=== PATIENT | male | born 1955 ===

== ENCOUNTER 2019-01-11 09:53 | Inpatient (IN) ==
[2019-01-11] MEDS ORDERED: ACETAMINOPHEN 325 MG TAB PO STA (10:15)
--- NOTE | 2019-01-11 10:43 | XRay Report ---
XR chest 1V portable CLINICAL HISTORY: 63 years-old Male presenting with Sepsis. TECHNIQUE: Portable upright AP view of the chest was obtained. COMPARISON: None. FINDINGS: The patient is slightly GEORGIAN rotated. Cardiac silhouette top normal in size. No focal opacity. No larg e effusion or pneumothorax. Degenerative changes of the thoracic spine. Gas and and ingested material distend the stomach. IMPRESSION: 1. No acute cardiopulmonary disease. Electronically signed by: Viet Astorga M.D. 01/11/2019 10:41 AM
[2019-01-11 11:13] LABS: Basophils # (auto) 0.01 K/uL (0-0.2); Basophils % (auto) 0.2 %; Eosinophils % (auto) 3.9 %; Hematocrit (blood only) 33.9 % (42-52); Hemoglobin 11.5 g/dL (14.0-18.0); Lymphocytes # (auto) 0.35 K/uL (1.2-3.4); Lymphocytes % (auto) 6.8 %; Mean Corpuscular Hgb Conc 33.9 g/dL (32-36); Mean Corpuscular Volume 97.1 fL (80-100); Mean Platelet Volume 10.3 fL (7.4-10.4); Monocytes # (auto) 0.43 K/uL (0.11-0.59); Monocytes % (auto) 8.4 %; Neutrophils # (auto) 4.14 K/uL (1.4-6.5); Neutrophils % (auto) 80.7 %; Platelet Count 250 K/uL (130-400); RDW Coefficient of Variation 13.7 % (11.5-14.5); RDW Standard Deviation 48.7 fL (36.4-46.3); Red Blood Count 3.49 M/uL (4.7-6.1); White Blood Count 5.13 K/uL (4.8-10.8)
[2019-01-11 11:28] LABS: INR 1.1 (0.9-1.1); Partial Thromboplastin Ratio 0.9; Partial Thromboplastin Time 23.6 Seconds (21.0-31.0)
[2019-01-11 11:30] LABS: Albumin Level 3.4 gm/dl (3.4-5.0); BUN Creatinine Ratio 37.7 (10-20); Calcium 9.1 mg/dl (8.5-10.1); Est GFR (African American) 87.1; Est GFR (Non-African American) 75.2; Potassium 3.6 mmol/L (3.5-5.1)
[2019-01-11 11:36] LABS: Albumin Globulin Ratio 0.8 (0.9-2); Bilirubin,Total 0.7 mg/dl (0.2-1); Globulin 4.2 gm/dl (2.5-4.0); Total Protein 7.6 gm/dl (6.4-8.2)
[2019-01-11 11:44] LABS: Influenza A virus by PCR Neg for Influ A (Neg); Influenza B virus by PCR Neg for Influ B (Neg)
--- NOTE | 2019-01-11 11:52 | CT Scan Report ---
HEAD CT NONCONTRAST CT DOSE: 638.56 mGycm HISTORY: weakness TECHNIQUE: Multiaxial CT images of the head were performed without the use of intravenous contrast. A utomated exposure control was utilized for this study. A dose lowering technique was utilized adheri ng to the principles of ALARA. Comparison: None. Findings: The paranasal sinuses and mastoid air cells are clear. The calvarium and skull base are int act. The ventricles and sulci are within normal limits. There is no mass, hematoma, midline shift, or acute infarct. There is a 2.4 x 2.3 cm lobular soft tissue mass within the right orbit within the re trobulbar location. This may be post injury and extraconal. This does raise a few calcifications. Thi s is consistent with a hemangioma. Mild paravertebral matter hypodensity is nonspecific but suggestiv e of microvascular ischemic change. Old lacunar infarct within the right thalamus. Impression: 1. No acute intracranial abnormality. 2. 2.4 x 2.3 cm lobular soft tissue mass within the right orbit as described above. This favors a hem angioma. Nonemergent ophthalmology consultation is recommended for further evaluation. 3. There is an old lacunar infarct within the right thalamus. 4. Presumed mild microvascular ischemic changes. Electronically signed by: Justo Hernandez M.D. 01/11/2019 11:51 AM
[2019-01-11] MEDS ORDERED: SODIUM CHLORIDE 0.9% 1000ML 1,000 ML IV ONE ×2 (12:54→14:48)
--- NOTE | 2019-01-11 14:39 | Magnetic Resonance Report ---
MRI OF THE THORACIC SPINE WITHOUT CONTRAST CLINICAL HISTORY: incontinence, numbness, weak r/o abscess/cauda COMPARISON: None. TECHNIQUE: Utilizing a 1.5 Mirta magnet and dedicated coil, multiplanar, multiecho imaging of the th oracic spine was performed without IV contrast. The patient was unable to complete the exam. FINDINGS: This exam is compromised by motion artifact. In addition, the axial pulsing sequences were not completed. However, alignment of the cervical spine is anatomic. Vertebral body heights are maint ained. Several T2 hyperintense foci within the thoracic spine are indeterminate but favor hemangiomas . There is no thoracic spine fracture. There is no intracanalicular mass or fluid collection. Thoraci c cord signal and caliber are normal. Paravertebral soft tissues are unremarkable. No disc herniation within the thoracic spine is noted. Of note, emergency room tech images demonstrate severe central canal stenosis at C3-C4 which is suboptimally assessed on this exam. However, there is cord compression with cord ed irma at the C3-C4 level. There is a disc bulge with suspected superimposed disc protrusion at C3-C4. T here is prominence of the posterior talus. There is loss of height of the superior plate of C4. There is slight retrolisthesis of C4 on C5. IMPRESSION: 1. Severe central canal stenosis with cord compression at C3-C4 and the C4 level which is only shown on the emergency room tech sequence but reveals disc bulge with associated disc protrusion, prominence of the poste rior elements with associated cord compression. Moderate loss of height of the superior endplate of C 4 is age-indeterminate but probably old. Slight retrolisthesis of C4 on C5. Spine surgical consultati on is recommended. 2. No significant abnormality within the thoracic spine although exam compromised by motion artifact. Electronically signed by: Leonardo Curran M.D. 01/11/2019 2:37 PM
[2019-01-11] MEDS ORDERED: cefTRIAXone SODIUM 2,000 MG in DEXTROSE 5% 50 ML IV STA (14:48)
[2019-01-11] MEDS ORDERED: VANCOMYCIN HCL 1,250 MG in SODIUM CHLORIDE 0.9% 500 ML IV ONE (14:48)
[2019-01-11] MEDS ORDERED: VANCOMYCIN CONSULT ACTIVE PRN (14:48)
[2019-01-11] MEDS ORDERED: methylPREDNISolone 125 MG in SYRINGE 0 ML IV STA (14:48)
[2019-01-11 14:57] LABS: Appearance Urine Turbid (Clear); Bacteria Urine Automated 1+ (Negative); Bilirubin Urine Negative (Negative); Blood Urine Negative (Negative); Color Urine Yellow; Glucose Urine UA Negative (Negative); Ketones Urine Negative (Negative); Leukocyte Esterase Urine 1+ (Negative); Nitrite Urine Positive (Negative); RBC Urine Automated 0-4 /hpf (0-4); Specific Gravity Urine 1.026 (1.000-1.030); Urobilinogen Urine Negative (Negative); pH Urine 7.5 (4.5-7.5)
[2019-01-11 15:19] LABS: Protein Urine Trace (Negative)
--- NOTE | 2019-01-11 15:30 | History & Physical Report ---
Date of Service January 11, 2019 Assessment & Plan (1) Cervical spinal cord compression: I suspect that the patient has had long-standing cervical spine issues but certainly his cord compression has been acute over the last 1-2 weeks. The presence of muscle atrophy of both hands would argue that he has had ongoing cervical spine issues probably for months if not longer. He has evidence of myelopathy on physical exam. He also has had bowel and bladder incontinence in the previous [address] Damon Díaz has been consulted from the spine team and plans to take the patient emergently to the operating room tonight for cervical spine cord decompression. The patient received a large dose of Solu- Medrol in the emergency department and I will continue Decadron 6 mg IV every 6 hours starting later tonight. Will allow morphine for pain control. He will be kept n.p.o. for his procedure tonight. Present on Admission?: Yes (2) Urinary retention: This is neurogenic in origin due to his cervical spine cord compression. Will leave Hoffmann catheter in place. Could consider a spontaneous voiding trial late in his hospitalization here if he makes a good recovery from the operation and if he is showing signs of neurological recovery. (3) UTI (urinary tract infection): Urine culture from January 10 is growing a staph species. Believe the UTI is the likely cause of his low-grade fever and lack of appetite. I do not think that the fever is due to the spinal cord process. The emergency room started Rocephin and vancomycin and I am going to continue both of these for now. Follow the blood cultures as well as the most recent urine culture. (4) Knee pain, bilateral: We will obtain x-rays of both knees to exclude any fracture. Also check for CPPD changes. The steroids for his cervical spine process will likely help the knees. (5) Thought disorder: The patient was unable to tell me what psychiatric diagnosis he has. I have to assume that he has some form of schizophrenia or schizoaffective disorder. Continue his Zyprexa. Fortunately he is not displaying any psychotic symptoms at this time. (6) DVT prophylaxis: SCDs. Chemical means contraindicated due to impending cervical spine surgery. Following his surgery he will need intensive rehabilitation and PT OT consults. Plan of care was discussed with Dr. Damon Díaz. Total time spent on admission activity 60 minutes History of Present Illness Chief Complaint: numbness, weakness Primary Care Provider: [facility] 63yo AA male presents with 2 weeks of right hand numbness and right leg numbness. This has been associated with weakness. He denies any numbness or weakness in the left arm or leg. He mentions several times he "stopped drinking water" but can't tell me why he did such. Due to the numbness and weakness he has had difficulty ambulating for about those 2 weeks. In fact he has spent most of the time in the bed. He has had bladder incontinence for about 24 hours. He denies issues with voiding prior. He had an episode of fecal incontinence just prior to arrival. He has lost weight recently -- maybe 10-15 pounds. This is despite eating. Allergies Allergy/AdvReac Type Severity Reaction Status Date / Time No Known Allergies Allergy Unverified 01/11/19 12:07 Home Medications Home Medications Medication Instructions Recorded Confirmed Type acetaminophen [Tylenol] 650 mg PO UD 01/11/19 01/11/19 History olanzapine [Zyprexa] 10 mg PO HS 01/11/19 01/11/19 History Past Med/Surg History Medical History Cervical spinal cord compression Cervical spine compression C3-4 cervical spine profound neuro deficits Hypertension Schizophrenia Surgical History History of eye surgery Family History Father , history is not known No problems noted. Mother , unknown health history No problems noted. 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 Other Information That Helps Us Care for You: No Safety Concerns: Feels Safe At This Time Smoking Status: Former smoker Hx Alcohol Use: No Hx Substance Use: No Review of Systems Constitutional: + fever, + anorexia and + weight loss; no chills Eyes: no worsening vision Ear, Nose, Mouth, Throat: no dysphagia Respiratory: no cough and no dyspnea Cardiovascular: no chest pain Gastrointestinal: + fecal incontinence; no abdominal pain, no nausea, no vomit ing and no blood in stools Genitourinary (Male): + difficulty urinating, + urinary hesitancy and + urinary incontinence Musculoskeletal: no neck pain and no joint pain Integumentary: no rash Neurologic: + localized weakness and + numbness Psychiatric: no hallucinations, no auditory hallucinations and no visual hallucinations no diabetes Physical Exam Vital Signs (Past 24 Hours): Last Vital Signs Temp 37.6 C H 01/11/19 12:34 Pulse 70 01/11/19 14:30 Resp 16 01/11/19 14:30 BP 126/74 01/11/19 14:30 Pulse Ox 95 01/11/19 14:30 Constitutional: + ill appearing and + thin; no acute distress Eyes: PERRL ENMT: external ear and nose normal, oropharynx normal Neck: trachea midline, no thyromegaly Respiratory: normal respiratory effort, lungs clear to auscultation Cardiovascular: Rate/Rhythm: regular rate and regular rhythm Heart Sounds: normal S1 and normal S2; no murmur Vessels: posterior tibial pulses present and dorsalis pedis pulses present; no JVD Extremities: no edema Gastrointestinal (Abdomen): normal bowel sounds, soft, nontender, no hepatosplenomegaly Inspection/Auscultation: + abdomen distended (mild) Musculoskeletal: Extremities: + muscle atrophy (intrinsic hand muscles b/l, worse on right; leg muscles as well) Bilateral knees with significant osteoarthritic bony changes as well as probable joint effusions. Left knee had signs of recent trauma to the medial aspect. She reported he had been crawling on his knees recently because of the weakness in his legs. Skin: no rashes, warm and dry Neurologic: Reflexes in the upper and lower extremities are brisk. May be a couple beats of ankle clonus bilaterally. 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 Left hand wharf labourer at best 3 out of 5. Right lower extremity with at most 1 out of 5 strength. Left lower extremity strength at best 2 out of 5. Right and left arm flexion about 3 out of 5 as he can raise his arms against gravity. Interestingly he stated that light sensation was the same in both the right and left legs as well as the right and left arms. I did not test his gai t. Psychiatric: Orientation: alert Affect: + flat affect He was not responding to internal stimuli and there is no evidence of auditory or visual hallucinations Genitourinary: Hoffmann catheter was in place Lymphatic: no cervical lymphadenopathy Results & Data Laboratory Results Laboratory Results - last 24 hr 01/11/19 01/11/19 01/11/19 10:40 10:59 10:59 WBC 5.13 RBC 3.49 L Hgb 11.5 L Hct 33.9 L MCV 97.1 MCH 33.0 MCHC 33.9 RDW Std Deviation 48.7 H RDW Coeff of Gael 13.7 Plt Count 250 MPV 10.3 Immature Gran % (Auto) 0.0 Neut % (Auto) 80.7 Lymph % (Auto) 6.8 [place] % (Auto) 8.4 Eos % (Auto) 3.9 Baso % (Auto) 0.2 Immature Gran # (Auto) 0.00 Neut # (Auto) 4.14 Lymph # (Auto) 0.35 L [place] # (Auto) 0.43 Eos # (Auto) 0.20 Baso # (Auto) 0.01 PT 11.0 INR 1.1 APTT 23.6 PTT Ratio 0.9 Sodium Potassium Chloride Carbon Dioxide Anion Gap BUN Creatinine Est Cr Clr Drug Dosing Est GFR ( Amer) Est GFR (Non-Af Amer) BUN/Creatinine Ratio Glucose Lactate Calcium Total Bilirubin AST ALT Alkaline Phosphatase Total Protein Albumin Globulin Albumin/Globulin Ratio Procalcitonin Urine Color Urine Appearance Urine pH Ur Specific [place] Urine Protein Urine Glucose (UA) Urine Ketones Urine Blood Urine Nitrite Urine Bilirubin Urine Urobilinogen Ur Leukocyte Esterase Urine WBC (Auto) Urine RBC (Auto) U Hyaline Cast (Auto) U Epithel Cells (Auto) Urine Bacteria (Auto) Influenza Type A (PCR) Neg for Influ A Influenza Type B (PCR) Neg for Influ B 01/11/19 01/11/19 01/11/19 10:59 10:59 11:07 WBC RBC Hgb Hct MCV MCH MCHC RDW Std Deviation RDW Coeff of Gael Plt Count MPV Immature Gran % (Auto) Neut % (Auto) Lymph % (Auto) [place] % (Auto) Eos % (Auto) Baso % (Auto) Immature Gran # (Auto) Neut # (Auto) Lymph # (Auto) [place] # (Auto) Eos # (Auto) Baso # (Auto) PT INR APTT PTT Ratio Sodium 144 Potassium 3.6 Chloride 109 H Carbon Dioxide 29 Anion Gap 6.0 BUN 40 H Creatinine 1.05 Est Cr Clr Drug Dosing 67.0 Est GFR ( Amer) 87.1 Est GFR (Non-Af Amer) 75.2 BUN/Creatinine Ratio 37.7 H Glucose 101 H Lactate 1.4 Calcium 9.1 Total Bilirubin 0.7 AST 19 ALT 28 Alkaline Phosphatase 106 Total Protein 7.6 Albumin 3.4 Globulin 4.2 H Albumin/Globulin Ratio 0.8 L Procalcitonin < 0.05 Urine Color Urine Appearance Urine pH Ur Specific [place] Urine Protein Urine Glucose (UA) Urine Ketones Urine Blood Urine Nitrite Urine Bilirubin Urine Urobilinogen Ur Leukocyte Esterase Urine WBC (Auto) Urine RBC (Auto) U Hyaline Cast (Auto) U Epithel Cells (Auto) Urine Bacteria (Auto) Influenza Type A (PCR) Influenza Type B (PCR) 01/11/19 14:20 WBC RBC Hgb Hct MCV MCH MCHC RDW Std Deviation RDW Coeff of Gael Plt Count MPV Immature Gran % (Auto) Neut % (Auto) Lymph % (Auto) [place] % (Auto) Eos % (Auto) Baso % (Auto) Immature Gran # (Auto) Neut # (Auto) Lymph # (Auto) [place] # (Auto) Eos # (Auto) Baso # (Auto) PT INR APTT PTT Ratio Sodium Potassium Chloride Carbon Dioxide Anion Gap BUN Creatinine Est Cr Clr Drug Dosing Est GFR ( Amer) Est GFR (Non-Af Amer) BUN/Creatinine Ratio Glucose Lactate Calcium Total Bilirubin AST ALT Alkaline Phosphatase Total Protein Albumin Globulin Albumin/Globulin Ratio Procalcitonin Urine Color Yellow Urine Appearance Turbid H Urine pH 7.5 Ur Specific [place] 1.026 Urine Protein Trace H Urine Glucose (UA) Negative Urine Ketones Negative Urine Blood Negative Urine Nitrite Positive H Urine Bilirubin Negative Urine Urobilinogen Negative Ur Leukocyte Esterase 1+ H Urine WBC (Auto) 10-30 H Urine RBC (Auto) 0-4 U Hyaline Cast (Auto) 1-5 U Epithel Cells (Auto) 5-10 H Urine Bacteria (Auto) 1+ H Influenza Type A (PCR) Influenza Type B (PCR) Diagnostic Findings MRI cervical spine- IMPRESSION: 1. Moderately advanced multilevel spondylitic changes 2. The study is most significant for severe spinal stenosis at the C3-4 level. This results in spinal cord flattening. In addition there is abnormal T2 signal within the cervical cord the C3 level extending over a length of 14 mm. This likely represents a secondary myelopathy. EKG - My reading: Normal sinus rhythm with PVCs, LVH by voltage criteria, V5 V6 with ST depression CXR - no acute process Code Status & VTE Plan Code Status LEVEL 5 DNR PER HIS REQUEST VTE Prophylaxis Plan VTE Prophylaxis will be ordered: Yes (1) UTI (urinary tract infection) Urinary tract infection type: acute cystitis Hematuria presence: without h ematuria Qualified Code(s): N30.00 - Acute cystitis without hematuria (2) Knee pain, bilateral Chronicity: acute Qualified Code(s): M25.561 - Pain in right knee; M25.562 - Pain in left knee
--- NOTE | 2019-01-11 16:47 | History & Physical Report ---
Date of Service January 11, 2019 Assessment & Plan (1) Cervical cord compression with myelopathy: Patient will be restudied with a new cervical MRI scan. He will be taken to the operating room with decompression of the spinal cord. His procedure will be an anterior cervical discectomy and fusion of cervical spine at C3-4 cervical spine we will also take iliac crest bone graft Present on Admission?: Yes History of Present Illness Primary Care Provider: ADRIANE Ortega Allergies Allergy/AdvReac Type Severity Reaction Status Date / Time No Known Allergies Allergy Unverified 01/11/19 12:07 Home Medications Home Medications Medication Instructions Recorded Confirmed Type acetaminophen [Tylenol] 650 mg PO UD 01/11/19 01/11/19 History olanzapine [Zyprexa] 10 mg PO HS 01/11/19 01/11/19 History Past Med/Surg History Social History Preferred Language: Divehi marital status: Single marital status details: no children Current Living Situation Comment: Retirement 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 Feels Safe at Home: Yes Smoking Status: Former smoker Hx Alcohol Use: No Hx Substance Use: No Physical Exam Vital Signs (Past 24 Hours): Last Vital Signs Temp 37.6 C H 01/11/19 12:34 Pulse 70 01/11/19 14:30 Resp 16 01/11/19 14:30 BP 126/74 01/11/19 14:30 Pulse Ox 95 01/11/19 14:30 Eyes: PERRL, conjunctivae normal, anicteric sclerae normal visual torres by confrontation Respiratory: normal respiratory effort, lungs clear to auscultation Cardiovascular: RRR, no murmur, no edema Rate/Rhythm: regular rate and regular rhythm Gastrointestinal (Abdomen): Rectal Exam: + abnormal sphincter tone Incontinence of bowel function Musculoskeletal: Head/Neck/Chest: head atraumatic Spine: + limited cervical ROM, + loss of normal cervical lordosis and + cervical spinal tenderness Extremities: + limited ROM of extremities, + abnormal muscle tone, + muscle atrophy, + clubbing, + upper extremity abnormal to inspection and + hand abnormality Knee: + knee abnormal to inspection Skin: no rashes, warm and dry normal turgor Psychiatric: Orientation: oriented x 3, oriented to time and cooperative Apperance: + disheveled Eye Contact: + fair eye contact Speech: normal rate/rhythm/volume of speech Affect: + depressed affect and + anxious affect Mood: + depressed mood Cognition: remote memory grossly intact Estimated Intelligence: average estimated intelligence Patient had good ocular control decreased range of motion of cervical spine. 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
--- NOTE | 2019-01-11 16:51 | Magnetic Resonance Report ---
MR cervical spine wo con CLINICAL HISTORY: Neck pain and limb numbness. Bowel incontinence. TECHNIQUE: Sagittal and axial T1, T2 and STIR images were obtained. COMPARISON STUDY: No previous studies for comparison. There is marrow edema at the C3 and C4 level, likely on a discogenic basis. C2-3: There is no evidence of disc bulge or focal herniation. There is no spinal or foraminal stenosi s. C3-4: There is disc narrowing. There is minimal retrolisthesis of C3 on C4. There is severe spinal st enosis. There is increased T2 signal within the cervical cord at the C2 level extending over cranioca udad length of 14 mm. This is consistent with a secondary myelopathy. There is bilateral foraminal na rrowing left more severe than right C4-5: There is mild retrolisthesis of C3-4 on C5. There is minimal spinal canal narrowing. There is b ilateral foraminal stenosis. C5-6 :There is a minor circumferential disc bulge. There is no significant spinal stenosis. There is bilateral foraminal narrowing left more severe than right C6-7: There is a minimal circumferential disc bulge. There is no spinal stenosis. There is bilateral foraminal narrowing. C7-T1: There is no evidence of disc bulge or focal herniation. There is no evidence of spinal or fora shelley stenosis. IMPRESSION: 1. Moderately advanced multilevel spondylitic changes 2. The study is most significant for severe spinal stenosis at the C3-4 level. This results in spinal cord flattening. In addition there is abnormal T2 signal within the cervical cord the C3 level exten ding over a length of 14 mm. This likely represents a secondary myelopathy. Electronically signed by: Amado Ellison M.D. 01/11/2019 4:49 PM
[2019-01-11] MEDS: SODIUM CHLORIDE 0.9% 1000ML 1,000 ML IV SCH ×2 (16:53→23:55)
--- NOTE | 2019-01-11 17:14 | XRay Report ---
XR knee RT 2V routine CLINICAL HISTORY: Pain status post trauma COMPARISON: None. DISCUSSION: There are advanced osteoarthritic changes. There are calcified loose bodies present. Ther e is a small joint effusion. There are no acute fractures. IMPRESSION: 1. Advanced degenerative changes with calcified loose bodies a small joint effusion. No acute fractur es are visualized. Electronically signed by: Amado Ellison M.D. 01/11/2019 5:13 PM
--- NOTE | 2019-01-11 17:15 | XRay Report ---
XR knee LT 2V routine CLINICAL HISTORY: Pain status post trauma COMPARISON: None. DISCUSSION: There are advanced degenerative changes present. There is a trace joint effusion. There a re no acute fractures. IMPRESSION: Advanced degenerative change. Trace joint effusion. No acute fractures. Electronically signed by: Amado Ellison M.D. 01/11/2019 5:13 PM
--- NOTE | 2019-01-11 17:17 | Emergency Department Note ---
Entered by Charis Salazar acting as a scribe for History of Present Illness General Chief complaint: Illness Time Seen by Provider: 01/11/19 09:59 Source: patient and old records reviewed History of Present Illness Onset (ago): week(s) 2 Location: lower extremity (right) Pain Consistency: + other (persistent) Quality: + other (numbness) Associated symptoms: + weakness and + other (right hand numbness, urinary incontinence, stool retention); no fever/chills The patient is a 63 year old male with a past medical history of mental health disease who presents to the Emergency Room with complaints of persistent right leg numbness starting 2 weeks ago. The patient states that 2 weeks ago he all of a sudden had right leg numbness and right hand numbness. He states that he has been unable to move either very well, but especially his leg. Negative recent falls, hitting his head, history of a stroke, use of blood t hinners, fever, and chills. Per the records from [facility], the patient is in their mental health unit and was sent over for a rule out of cauda equina. They report that he has had lower extremity weakness and numbness, urinary incontinence, and stool retention. 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 and A total of 10 systems reviewed and were otherwise negative Physical Exam Vital Signs Vital Signs - 24 hr 01/11/19 09:55 01/11/19 10:39 01/11/19 10:44 Temperature 37.9 C H Temperature Source Oral Sepsis Recent Fever Within 48 Hours No Sepsis New/Unexplained Change in Mental Status No Sepsis Action Taken by Nursing No Action Required Pulse Rate 78 85 Pulse Rate [Right Finger] Pulse Rate from SpO2 Sensor 75 Pulse Rhythm [Right Finger] Pulse Strength [Right Finger] Respiratory Rate 16 22 Respiratory Effort / Characteristics Non-Labored Respiratory Depth Normal Respiratory Pattern Blood Pressure 128/84 120/74 Blood Pressure [Right Arm] Blood Pressure Mean 98 89 Blood Pressure Mean [Right Arm] Blood Pressure Position [Right Arm] Pulse Oximetry 97 98 95 Oxygen Delivery Method Room Air Room Air 01/11/19 11:30 01/11/19 11:42 01/11/19 12:00 Temperature Temperature Source Sepsis Recent Fever Within 48 Hours Sepsis New/Unexplained Change in Mental Status Sepsis Action Taken by Nursing Pulse Rate 78 77 71 Pulse Rate [Right Finger] 80 Pulse Rate from SpO2 Sensor 73 66 Pulse Rhythm [Right Finger] Regular Pulse Strength [Right Finger] Normal Respiratory Rate 18 19 19 Respiratory Effort / Characteristics Non-Labored Spontaneous Respiratory Depth Normal Respiratory Pattern Regular Blood Pressure 121/89 116/79 110/74 Blood Pressure [Right Arm] 116/79 Blood Pressure Mean 99 91 86 Blood Pressure Mean [Right Arm] 91 Blood Pressure Position [Right Arm] Lying Pulse Oximetry 95 100 99 Oxygen Delivery Method Room Air Room Air 01/11/19 12:31 01/11/19 12:34 01/11/19 13:58 Temperature 37.6 C H Temperature Source Oral Sepsis Recent Fever Within 48 Hours Sepsis New/Unexplained Change in Mental Status Sepsis Action Taken by Nursing Pulse Rate 76 68 Pulse Rate [Right Finger] Pulse Rate from SpO2 Sensor 60 Pulse Rhythm [Right Finger] Pulse Strength [Right Finger] Respiratory Rate 22 18 Respiratory Effort / Characteristics Respiratory Depth Respiratory Pattern Blood Pressure 99/62 L 116/70 Blood Pressure [Right Arm] Blood Pressure Mean 74 85 Blood Pressure Mean [Right Arm] Blood Pressure Position [Right Arm] Pulse Oximetry 99 Oxygen Delivery Method 01/11/19 14:01 01/11/19 14:30 01/11/19 16:43 Temperature Temperature Source Sepsis Recent Fever Within 48 Hours Sepsis New/Unexplained Change in Mental Status Sepsis Action Taken by Nursing Pulse Rate 72 70 Pulse Rate [Right Finger] 68 Pulse Rate from SpO2 Sensor Pulse Rhythm [Right Finger] Pulse Strength [Right Finger] Respiratory Rate 22 16 18 Respiratory Effort / Characteristics Respiratory Depth Respiratory Pattern Blood Pressure 109/73 126/74 Blood Pressure [Right Arm] 122/64 Blood Pressure Mean 85 91 Blood Pressure Mean [Right Arm] 83 Blood Pressure Position [Right Arm] Pulse Oximetry 95 98 Oxygen Delivery Method Room Air GENERAL: Smells of urine, nontoxic, thin in body habitus. EYE EXAM: Normal conjunctiva. PERRL, no anisocoria and EOM's grossly intact w/o pain. OROPHARYNX: Moist MM. NECK: Supple, no nuchal rigidity, no adenopathy, non-tender. No signs of meningismus. LUNGS: Clear to auscultation. Normal chest wall mechanics. HEART: NSR, no MRG. ABDOMEN: Abdomen soft, non-tender, normo-active bowel sounds, no masses, no rebound or guarding. BACK: No CVA TTP. SKIN: No rashes and no bruising. UPPER EXTREMITIES: Upper extremities are grossly normal. LOWER EXTREMITIES: No pitting edema. No calf pain. NEURO EXAM: Alert and oriented. Follow commands without issue. No sensory deficit identified bilateral upper and lower extremities. SILT to MUR nerves bilateral upper extremities. SPDP to tibialis nerves to bilateral lower extremities. No saddle anesthesia. 2/5 LLE, 1/5 RLE strength; decreased strength at b/l wrists/elbows w/ 3/5 strength w/ flex/ext and good shoulder shrug/ab/adduction of shoulders Course 1007: Past medical records reviewed. The patient was evaluated in room C8, and a complete history and physical examination were performed. 1255: I went to reevaluate the patient and he is still in MRI. 1355: I discussed the patient's case with the [facility] Sylvester MAYA. I updated him on the patient thus far. 1431: I discussed the patient's case with Dr. Jay Dickinson on the results of his MRI. 1444: I discussed the patient's case with Dr. Díaz- [facility]. He will take the patient to the OR [facility]. 1501: I reviewed the patient's case with Dr. Christiansen [facility] Hospitalist. He will evaluate the patient for further management. 1510: I reevaluated the patient and updated him on his test results. I discussed the treatment plan with him. He verbally agrees and understands. 1530: I updated the [facility] Physician at this time. Consultations Consultation #1: I discussed the patient's case with the [facility] Sylvester MAYA. I updated him on the patient thus far. Time: 13:55 Consultation #2: I discussed the patient's case with Dr. Magdy- Radiology on the results of his MRI. Time: 14:31 Consultation #3: I discussed the patient's case with Dr. Díaz- [facility]. He will take the patient to the OR [facility]. Time: 14:44 Additional Consultation(s): 1501: I reviewed the patient's case with Dr. Rosas- [facility] Hospitalist. He will evaluate the patient for further management. 1530: I updated the [facility] Physician at this time. Administered Medications Vancomycin HCl 1,250 mg/ (Sodium Chloride) 525 mls @ 200 mls/hr IV NOW ONE Stop: 01/11/19 17:25 Last Admin: 01/11/19 16:45 Dose: 200 mls/hr Documented by: [id number] Sodium Chloride (Nss 1000ml) 1,000 mls @ 125 mls/hr IV .Q8H CHALINO Stop: 02/10/19 15:14 Last Admin: 01/11/19 16:53 Dose: 125 mls/hr Documented by: [id number] Discontinued Medications Acetaminophen (Tylenol) 650 mg PO NOW STA Stop: 01/11/19 10:16 Last Admin: 01/11/19 10:48 Dose: 650 mg Documented by: [id number] Sodium Chloride (Nss 1000ml) 1,000 mls @ 999 mls/hr IV .Q1H1M ONE Stop: 01/11/19 13:54 Last Admin: 01/11/19 14:08 Dose: 999 mls/hr Documented by: [id number] Ceftriaxone Sodium 2,000 mg/ (Dextrose) 70 mls @ 100 mls/hr IV NOW STA Stop: 01/11/19 15:29 Last Admin: 01/11/19 15:35 Dose: 100 mls/hr Documented by: [id number] Methylprednisolone 125 mg/ (Syringe) 2 mls @ 1.5 mls/min IV NOW STA Stop: 01/11/19 14:49 Last Admin: 01/11/19 15:34 Dose: 1.5 mls/min Documented by: [id number] Sodium Chloride (Nss 1000ml) 1,000 mls @ 999 mls/hr IV .Q1H1M ONE Stop: 01/11/19 15:48 Last Admin: 01/11/19 15:35 Dose: 999 mls/hr Documented by: [id number] Medical Decision Making Medical Records Attestation: I reviewed the patient's medical records. Home Medications Current Medication List: was personally reviewed by me Laboratory Data Attestation: I reviewed the patient's lab results. Result diagrams: 01/11/19 10:59 01/11/19 10:59 Lab Results 01/11/19 01/11/19 01/11/19 Range/Units 10:40 10:59 10:59 WBC 5.13 (4.8-10.8) K/uL RBC 3.49 L (4.7-6.1) M/uL Hgb 11.5 L (14.0-18.0) g/dL Hct 33.9 L (42-52) % MCV 97.1 (80-100) fL MCH 33.0 (25-34) pg MCHC 33.9 (32-36) g/dL RDW Std Deviation 48.7 H (36.4-46.3) fL RDW Coeff of Gael 13.7 (11.5-14.5) % Plt Count 250 (130-400) K/uL MPV 10.3 (7.4-10.4) fL Immature Gran % (Auto) 0.0 % Neut % (Auto) 80.7 % Lymph % (Auto) 6.8 % [place] % (Auto) 8.4 % Eos % (Auto) 3.9 % Baso % (Auto) 0.2 % Immature Gran # (Auto) 0.00 (0.00-0.02) K/uL Neut # (Auto) 4.14 (1.4-6.5) K/uL Lymph # (Auto) 0.35 L (1.2-3.4) K/uL [place] # (Auto) 0.43 (0.11-0.59) K/uL Eos # (Auto) 0.20 (0-0.5) K/uL Baso # (Auto) 0.01 (0-0.2) K/uL PT 11.0 (9.0-12.0) Seconds INR 1.1 (0.9-1.1) APTT 23.6 (21.0-31.0) Seconds PTT Ratio 0.9 Sodium (136-145) mmol/L Potassium (3.5-5.1) mmol/L Chloride (98-107) mmol/L Carbon Dioxide (21-32) mmol/L Anion Gap (3-11) BUN (7-18) mg/dl Creatinine (0.6-1.4) mg/dl Est Cr Clr Drug Dosing ml/min Est GFR ( Amer) Est GFR (Non-Af Amer) BUN/Creatinine Ratio (10-20) Glucose (70-99) mg/dl Lactate (0.4-2.0) mmol/L Calcium (8.5-10.1) mg/dl Total Bilirubin (0.2-1) mg/dl AST (15-37) U/L ALT (12-78) U/L Alkaline Phosphatase (45-117) U/L Total Protein (6.4-8.2) gm/dl Albumin (3.4-5.0) gm/dl Globulin (2.5-4.0) gm/dl Albumin/Globulin Ratio (0.9-2) Procalcitonin (0-0.5) ng/ml Urine Color Urine Appearance (Clear) Urine pH (4.5-7.5) Ur Specific Warren (1.000-1.030) Urine Protein (Negative) Urine Glucose (UA) (Negative) Urine Ketones (Negative) Urine Blood (Negative) Urine Nitrite (Negative) Urine Bilirubin (Negative) Urine Urobilinogen (Negative) Ur Leukocyte Esterase (Negative) Urine WBC (Auto) (0-5) /hpf Urine RBC (Auto) (0-4) /hpf U Hyaline Cast (Auto) (0-5) /lpf U Epithel Cells (Auto) (0-5) /lpf Urine Bacteria (Auto) (Negative) Influenza Type A (PCR) Neg for Influ A (Neg) Influenza Type B (PCR) Neg for Influ B (Neg) 01/11/19 01/11/19 01/11/19 Range/Units 10:59 10:59 11:07 WBC (4.8-10.8) K/uL RBC (4.7-6.1) M/uL Hgb (14.0-18.0) g/dL Hct (42-52) % MCV (80-100) fL MCH (25-34) pg MCHC (32-36) g/dL RDW Std Deviation (36.4-46.3) fL RDW Coeff of Gael (11.5-14.5) % Plt Count (130-400) K/uL MPV (7.4-10.4) fL Immature Gran % (Auto) % Neut % (Auto) % Lymph % (Auto) % [place] % (Auto) % Eos % (Auto) % Baso % (Auto) % Immature Gran # (Auto) (0.00-0.02) K/uL Neut # (Auto) (1.4-6.5) K/uL Lymph # (Auto) (1.2-3.4) K/uL [place] # (Auto) (0.11-0.59) K/uL Eos # (Auto) (0-0.5) K/uL Baso # (Auto) (0-0.2) K/uL PT (9.0-12.0) Seconds INR (0.9-1.1) APTT (21.0-31.0) Seconds PTT Ratio Sodium 144 (136-145) mmol/L Potassium 3.6 (3.5-5.1) mmol/L Chloride 109 H (98-107) mmol/L Carbon Dioxide 29 (21-32) mmol/L Anion Gap 6.0 (3-11) BUN 40 H (7-18) mg/dl Creatinine 1.05 (0.6-1.4) mg/dl Est Cr Clr Drug Dosing 67.0 ml/min Est GFR ( Amer) 87.1 Est GFR (Non-Af Amer) 75.2 BUN/Creatinine Ratio 37.7 H (10-20) Glucose 101 H (70-99) mg/dl Lactate 1.4 (0.4-2.0) mmol/L Calcium 9.1 (8.5-10.1) mg/dl Total Bilirubin 0.7 (0.2-1) mg/dl AST 19 (15-37) U/L ALT 28 (12-78) U/L Alkaline Phosphatase 106 (45-117) U/L Total Protein 7.6 (6.4-8.2) gm/dl Albumin 3.4 (3.4-5.0) gm/dl Globulin 4.2 H (2.5-4.0) gm/dl Albumin/Globulin Ratio 0.8 L (0.9-2) Procalcitonin < 0.05 (0-0.5) ng/ml Urine Color Urine Appearance (Clear) Urine pH (4.5-7.5) Ur Specific Warren (1.000-1.030) Urine Protein (Negative) Urine Glucose (UA) (Negative) Urine Ketones (Negative) Urine Blood (Negative) Urine Nitrite (Negative) Urine Bilirubin (Negative) Urine Urobilinogen (Negative) Ur Leukocyte Esterase (Negative) Urine WBC (Auto) (0-5) /hpf Urine RBC (Auto) (0-4) /hpf U Hyaline Cast (Auto) (0-5) /lpf U Epithel Cells (Auto) (0-5) /lpf Urine Bacteria (Auto) (Negative) Influenza Type A (PCR) (Neg) Influenza Type B (PCR) (Neg) 01/11/19 Range/Units 14:20 WBC (4.8-10.8) K/uL RBC (4.7-6.1) M/uL Hgb (14.0-18.0) g/dL Hct (42-52) % MCV (80-100) fL MCH (25-34) pg MCHC (32-36) g/dL RDW Std Deviation (36.4-46.3) fL RDW Coeff of Gael (11.5-14.5) % Plt Count (130-400) K/uL MPV (7.4-10.4) fL Immature Gran % (Auto) % Neut % (Auto) % Lymph % (Auto) % [place] % (Auto) % Eos % (Auto) % Baso % (Auto) % Immature Gran # (Auto) (0.00-0.02) K/uL Neut # (Auto) (1.4-6.5) K/uL Lymph # (Auto) (1.2-3.4) K/uL [place] # (Auto) (0.11-0.59) K/uL Eos # (Auto) (0-0.5) K/uL Baso # (Auto) (0-0.2) K/uL PT (9.0-12.0) Seconds INR (0.9-1.1) APTT (21.0-31.0) Seconds PTT Ratio Sodium (136-145) mmol/L Potassium (3.5-5.1) mmol/L Chloride (98-107) mmol/L Carbon Dioxide (21-32) mmol/L Anion Gap (3-11) BUN (7-18) mg/dl Creatinine (0.6-1.4) mg/dl Est Cr Clr Drug Dosing ml/min Est GFR ( Amer) Est GFR (Non-Af Amer) BUN/Creatinine Ratio (10-20) Glucose (70-99) mg/dl Lactate (0.4-2.0) mmol/L Calcium (8.5-10.1) mg/dl Total Bilirubin (0.2-1) mg/dl AST (15-37) U/L ALT (12-78) U/L Alkaline Phosphatase (45-117) U/L Total Protein (6.4-8.2) gm/dl Albumin (3.4-5.0) gm/dl Globulin (2.5-4.0) gm/dl Albumin/Globulin Ratio (0.9-2) Procalcitonin (0-0.5) ng/ml Urine Color Yellow Urine Appearance Turbid H (Clear) Urine pH 7.5 (4.5-7.5) Ur Specific Warren 1.026 (1.000-1.030) Urine Protein Trace H (Negative) Urine Glucose (UA) Negative (Negative) Urine Ketones Negative (Negative) Urine Blood Negative (Negative) Urine Nitrite Positive H (Negative) Urine Bilirubin Negative (Negative) Urine Urobilinogen Negative (Negative) Ur Leukocyte Esterase 1+ H (Negative) Urine WBC (Auto) 10-30 H (0-5) /hpf Urine RBC (Auto) 0-4 (0-4) /hpf U Hyaline Cast (Auto) 1-5 (0-5) /lpf U Epithel Cells (Auto) 5-10 H (0-5) /lpf Urine Bacteria (Auto) 1+ H (Negative) Influenza Type A (PCR) (Neg) Influenza Type B (PCR) (Neg) Imaging Data Radiologist's Impression: Radiology results as stated below per my review and the radiologist's interpretation: XR chest 1V portable CLINICAL HISTORY: 63 years-old Male presenting with Sepsis. TECHNIQUE: Portable upright AP view of the chest was obtained. COMPARISON: None. FINDINGS: The patient is slightly BRENDAN rotated. Cardiac silhouette top normal in size. No focal opacity. No large effusion or pneumothorax. Degenerative changes of the thoracic spine. Gas and and ingested material distend the stomach. IMPRESSION: 1. No acute cardiopulmonary disease. Electronically signed by: Viet Astorga M.D. 01/11/2019 10:[address]AST CT DOSE: 638.56 mGycm HISTORY: weakness TECHNIQUE: Multiaxial CT images of the head were performed without the use of intravenous contrast. Automated exposure control was utilized for this study. A dose lowering technique was utilized adhering to the principles of ALARA. Comparison: None. Findings: The paranasal sinuses and mastoid air cells are clear. The calvarium and skull base are intact. The ventricles and sulci are within normal limits. There is no mass, hematoma, midline shift, or acute infarct. There is a 2.4 x 2.3 cm lobular soft tissue mass within the right orbit within the retrobulbar location. This may be post injury and extraconal. This does raise a few calcifications. This is consistent with a hemangioma. Mild paravertebral matter hypodensity is nonspecific but suggestive of microvascular ischemic change. Old lacunar infarct within the right thalamus. Impression: 1. No acute intracranial abnormality. 2. 2.4 x 2.3 cm lobular soft tissue mass within the right orbit as described above. This favors a hemangioma. Nonemergent ophthalmology consultation is recommended for further evaluation. 3. There is an old lacunar infarct within the right thalamus. 4. Presumed mild microvascular ischemic changes. Electronically signed by: Justo Hernandez M.D. 01/11/2019 11:51 AM MRI OF THE THORACIC SPINE WITHOUT CONTRAST CLINICAL HISTORY: incontinence, numbness, weak r/o abscess/cauda COMPARISON: None. TECHNIQUE: Utilizing a 1.5 Mirta magnet and dedicated coil, multiplanar, multiecho imaging of the thoracic spine was performed without IV contrast. The patient was unable to complete the exam. FINDINGS: This exam is compromised by motion artifact. In addition, the axial pulsing sequences were not completed. However, alignment of the cervical spine is anatomic. Vertebral body heights are maintained. Several T2 hyperintense foci within the thoracic spine are indeterminate but favor hemangiomas. There is no thoracic spine fracture. There is no intracanalicular mass or fluid collection. Thoracic cord signal and caliber are normal. Paravertebral soft tissues are unremarkable. No disc herniation within the thoracic spine is noted. Of note, helium arc welder images demonstrate severe central canal stenosis at C3-C4 which is suboptimally assessed on this exam. However, there is cord compression with cord edema at the C3-C4 level. There is a disc bulge with suspected superimposed disc protrusion at C3-C4. There is prominence of the posterior talus. There is loss of height of the superior plate of C4. There is slight retrolisthesis of C4 on C5. IMPRESSION: 1. Severe central canal stenosis with cord compression at C3-C4 and the C4 level which is only shown on the helium arc welder sequence but reveals disc bulge with associated disc protrusion, prominence of the posterior elements with associated cord compression. Moderate loss of height of the superior endplate of C4 is age-indeterminate but probably old. Slight retrolisthesis of C4 on C5. Spine surgical consultation is recommended. 2. No significant abnormality within the thoracic spine although exam compromised by motion artifact. Electronically signed by: Leonardo Curran M.D. 01/11/2019 2:37 PM MRI of LUMBAR was not obtained. ECG Data Attestation: I personally reviewed and interpreted this ECG as follows: Indication: weakness Rate (beats per minute): 83 Rhythm: sinus rhythm Findings: + other (normal intervals, LAD), + PVC and + T-wave inversion (lateral leads) Comparison ECG Date: no prior available Blood Pressure Blood Pressure Findings: Normal blood pressure Blood Pressure Disposition: did not require urgent referral MDM Narrative The patient is a 63 year old male with a past medical history of mental health disease who presents to the Emergency Room with complaints of persistent right leg numbness starting 2 weeks ago. Differential Diagnosis includes but is not limited to ischemic Stroke, hemorrhagic stroke, bells palsy, mass, neoplasm, migraine headache, seizure, subarachnoid hemorrhage, TIA, and transient global amnesia. Patient was seen and evaluated the bedside. Patient is a known prisoner incarcerated for a long time that there was concern for possible cauda equina. Patient does have a known fever. The patient does complain of weakness and tingling. On exam he does appear to move his left lower extremity. The patient does not have any numbness even that he states he has numbness but he can feel and can discriminate between bilateral upper and lower extremities. No saddle anesthesia. There has been reported fecal retention and urinary incontinence. Here the patient has had urinary retention as well as fecal incontinence. Patient did have blood work completed along with blood and urine cultures urinalysis and MRI of the spine. Patient's blood work shows a normal white count. Patient has a pro-Jose that is not elevated. Urinalysis does show a likely UTI. The patient was covered with both vancomycin and Rocephin which is light likely cause of his fever and associated infection. Given that his symptoms have been somewhat lingering weeks believe this is more of an incidental finding and likely related to the patient's urinary retention. Flu negative. Patient did have a thoracic spine MRI completed and there is a scalloped image obtained of the cervical spine. Lumbar spine was not completed. There was concern that there was some degenerative change and associated cervical spinal stenosis and cord compression within the cervical spine. Given this I did speak with the on-call spinal surgeon who recommended n.p.o., steroids given the patient's fever he was covered with the antibiotics. I did speak with the on- call hospitalist who agreed to further evaluate treat the patient. Patient was admitted to the medicine service. Impression & Plan Compression of spinal cord, Weakness Critical Care Time I have personally spent greater than 45 minutes of critical care time in direct management of this patient. This includes bedside care, interpretation of diagnostic studies, and testing, discussion with consultants, patient, and family members, and other require inpatient management activities. This 45 minutes is in excess of all separately billable procedures. Critical Care Time: Yes Total Critical Care Time: 45 Discharge Plan Visit Data *Final* Discharge Date/Time: 01/11/19 16:58 Chief Complaint: Illness ED Provider: Feng Johnson Discharge Problem: Compression of spinal cord, Weakness Patient Disposition: Admitted As Inpatient Discharge Instructions Interventions: ED Discharge Assessment Last Done: 01/11/19 16:58 The scribe's documentation has been prepared under my direction and personally reviewed by me in its entirety. I confirm that the note above accurately r eflects all work, treatment, procedures, and medical decision making performed by me.
[2019-01-11] MEDS ORDERED: ONDANSETRON INJ 2 MG/ML 2 ML VIAL IV PRN ×2 (17:40→23:05)
[2019-01-11] MEDS ORDERED: MoRPHine SULFATE 2 MG/ML CARP IV PRN (17:40)
--- NOTE | 2019-01-11 18:15 | Anesthesiology Consultation ---
Date of Service January 11, 2019 Assessment & Plan Chart Review Chart Review: Acceptable Risk for Surgery and Patient NOT seen in Pre Admission Testing Consults Requested none Pulmonary ASA [id number] Proposed Anesthesia Anesthesia Type: General Risk / Benefits Reviewed With: PT / POA / Parent / Guardian, Accepts Plan and Informed Consent Obtained NPO Date Last Intake of Fluids: 01/11/19 Time Last Intake of Fluids: 10:00 Date Last Intake of Solids: 01/10/19 Time Last Intake of Solids: 17:00 History Surgery Operation Date: 01/11/19 14:20 Proposed Procedures p C3-C4 Anterior Cervical Discectomy Fusion - Damon Díaz DO Height/Weight Height: 6 ft 1 in Weight: 65.8 kg Allergies Allergy/AdvReac Type Severity Reaction Status Date / Time No Known Allergies Allergy Unverified 01/11/19 12:07 Medications Home Medications Medication Instructions Recorded Confirmed Last Taken acetaminophen [Tylenol] 650 mg PO UD 01/11/19 01/11/19 01/11/19 09:00 olanzapine [Zyprexa] 10 mg PO HS 01/11/19 01/11/19 01/10/19 Active Medications Generic Name Dose Route Start Last Admin Trade Name Freq PRN Reason Stop Dose Admin Sodium Chloride 1,000 mls @ 125 mls/hr 01/11/19 15:15 01/11/19 16:53 Nss 1000ml IV 02/10/19 15:14 125 mls/hr .Q8H CHALINO Administration Past Medical History Medical History Cervical spinal cord compression Cervical spine compression C3-4 cervical spine profound neuro deficits Hypertension Schizophrenia Past Family History Family History Father , history is not known No problems noted. Mother , unknown health history No problems noted. Other No significant family history Past Surgical History Surgical History History of eye surgery Past Anesthesia History No Hx of Anesthesia Complications History of PONV No Motion Sickness Screening History of Motion Sickness: No Social History Smoking Status: Former smoker Do You Dip or Chew Tobacco: No Hx Alcohol Use: No Hx Substance Use: No Exercise / Class Metabolic Activity III < 4 Walking/Shop/Light housework Review of Systems Negative for chest pain or shortness of breath. numbness and weakness on left side Patient denies active symptoms of GERD. Physical Exam Vital Signs Last Vital Signs Temp 36.7 C 01/11/19 17:10 Pulse 47 L 01/11/19 17:10 Resp 16 01/11/19 17:10 BP 116/72 01/11/19 17:10 Pulse Ox 98 01/11/19 17:10 Constitutional not obese ENMT Mouth: no TMJ abnormality and oral opening not small Thyromental Distance: < 3.5 Finger Breadths Mallampati Class: III Neck normal visual inspection and + facial hair; neck extension not limited Respiratory normal respiratory effort Auscultation: lungs clear to auscultation bilaterally Cardiovascular Rate/Rhythm: regular rate and regular rhythm Heart Sounds: no murmur Psychiatric A+Ox3, euthymic affect Orientation: alert and oriented x 3 Testing Electrocardiogram Date: 01/11/19 Findings: + NSR @ (83) Sinus rhythm with frequent Premature ventricular complexes, Possible Left atrial enlargement, Left axis deviation, Left ventricular hypertrophy, Cannot rule out Septal infarct, age undetermined, T wave abnormality, consider lateral ischemia, Abnormal ECG Chest X-Ray Date: 01/11/19 No acute cardiopulmonary disease. Laboratory Results 01/11/19 10:59 01/11/19 10:59 PT 11.0 Seconds (9.0-12.0) 01/11/19 10:59 INR 1.1 (0.9-1.1) 01/11/19 10:59 APTT 23.6 Seconds (21.0-31.0) 01/11/19 10:59 Urine Color Yellow 01/11/19 14:20 Urine Appearance Turbid (Clear) H 01/11/19 14:20 Urine pH 7.5 (4.5-7.5) 01/11/19 14:20 Ur Specific [place] 1.026 (1.000-1.030) 01/11/19 14:20 Urine Protein Trace (Negative) H 01/11/19 14:20 Urine Glucose (UA) Negative (Negative) 01/11/19 14:20 Urine Ketones Negative (Negative) 01/11/19 14:20 Urine Nitrite Positive (Negative) H 01/11/19 14:20 Ur Leukocyte Esterase 1+ (Negative) H 01/11/19 14:20 Urine WBC (Auto) 10-30 /hpf (0-5) H 01/11/19 14:20 Urine RBC (Auto) 0-4 /hpf (0-4) 01/11/19 14:20 U Hyaline Cast (Auto) 1-5 /lpf (0-5) 01/11/19 14:20 U Epithel Cells (Auto) 5-10 /lpf (0-5) H 01/11/19 14:20 Urine Bacteria (Auto) 1+ (Negative) H 01/11/19 14:20
--- NOTE | 2019-01-11 18:29 | History & Physical Bridge Note ---
Date of Service January 11, 2019 History & Physical Bridge Note I have examined the patient, reviewed the History & Physical and in the interval since the performance of the History & Physical I have noted the following changes of clinical significance: no changes noted
[2019-01-11] MEDS ORDERED: ONDANSETRON INJ 2 MG/ML 2 ML VIAL ONE ×2 (18:34→20:41)
[2019-01-11] MEDS ORDERED: ROCURONIUM BROMIDE 10 MG/ML 5 ML VIAL ONE (18:34)
[2019-01-11] MEDS ORDERED: LIDOCAINE HCL 2% 2 ML VIAL/AMP(20MG/ML) INFIL ONE (18:34)
[2019-01-11] MEDS ORDERED: PHENYLEPHRINE HCL 10 MG/ML VIAL ONE (18:34)
[2019-01-11] MEDS ORDERED: DEXAMETHASONE SOD INJ 4 MG/ML VIAL ONE ×2 (18:34→20:41)
[2019-01-11] MEDS ORDERED: PROPOFOL IV EMULSION 10 MG/ML 20 ML VIAL IV ONE (18:34)
[2019-01-11] MEDS ORDERED: BUPIVACAINE/EPINEPHRINE 0.5% MPF 1:200,000 30 ML VIAL ONE (18:36)
[2019-01-11] MEDS ORDERED: VANCOMYCIN HCL 1000MG/20ML VIAL ONE (18:36)
[2019-01-11] MEDS ORDERED: THROMBIN FOR SOLN 20000 UNIT KIT ONE (18:36)
[2019-01-11] MEDS ORDERED: BACITRACIN INJ 50,000 UNIT VIAL ONE (18:36)
[2019-01-11] MEDS ORDERED: GELATIN SPONGE SZ 100 ONE (18:36)
[2019-01-11] MEDS ORDERED: fentaNYL citrate 100 MCG/2 ML VIAL ONE ×2 (18:38→19:27)
[2019-01-11] MEDS ORDERED: MIDAZOLAM HCL 1 MG/ML 2ML VIAL ONE (18:38)
[2019-01-11] MEDS ORDERED: PHENYLEPHRINE 100MCG/ML 5ML SYR ONE (20:10)
[2019-01-11] MEDS ORDERED: ePHEDrine sulfate 50 MG/ML SYR ONE (20:10)
--- NOTE | 2019-01-11 20:27 | Fluoroscopy Report ---
FL cervical 2-3V CLINICAL HISTORY: C3-C4 FUSION COMPARISON STUDY: MRI dated 01/11/2019 FLUOROSCOPY TIME: 6 seconds. NUMBER OF FLUOROSCOPIC IMAGES: 1 FINDINGS: A single lateral fluoroscopic spot image reveals postsurgical changes of a C3-4 anterior di scectomy and cervical spinal fusion. IMPRESSION: Postsurgical changes of a C3-4 anterior discectomy and spinal fusion. Electronically signed by: Amado Ellison M.D. 01/11/2019 8:25 PM
--- NOTE | 2019-01-11 20:36 | Post Operative Brief Note ---
Immediate Post Op Note v1 Date of Surgery January 11, 2019 Pre & Post Diagnosis Operation Date: 01/11/19 14:20 Pre-Op Diagnosis: CERVICAL SPINE CORD COMPRESSION Post-Op Diagnosis: CERVICAL SPINE CORD COMPRESSION Procedure Operation Date: 01/11/19 14:20 Actual Procedures p C3-C4 Anterior Cervical Discectomy Fusion(Not Applicable) - Damon Díaz DO Surgeon Damon Díaz DO Reacher george Estimated Blood Loss 5 Findings Consistent with Post-Op Diagnosis Drains [place] Drain
[2019-01-11] MEDS ORDERED: ATROPINE SULFATE 0.1 MG/ML 10ML SYR IV PRN (21:12)
[2019-01-11] MEDS ORDERED: fentaNYL citrate 100 MCG/2 ML VIAL IV PRN (21:12)
[2019-01-11] MEDS ORDERED: ePHEDrine sulfate 50 MG/ML AMP IV PRN (21:12)
--- NOTE | 2019-01-11 21:22 | Anesthesiology Progress Note ---
Date of Service January 11, 2019 Anesthesia Post Procedure Vital Signs Vital Signs: Temp Pulse Pulse Resp BP BP Pulse Ox 01/11/19 22:25 36.3 C L 66 18 166/81 H 100 01/11/19 22:16 67 20 158/96 H 100 01/11/19 22:05 71 18 145/91 H 100 01/11/19 21:55 62 20 162/86 H 100 01/11/19 21:43 60 18 159/98 H 100 01/11/19 21:42 62 18 164/92 H 97 01/11/19 21:41 55 L 20 164/88 H 99 01/11/19 21:40 60 18 160/92 H 100 01/11/19 21:32 36.5 C 62 20 164/92 H 97 01/11/19 21:20 55 L 20 160/93 H 100 01/11/19 21:10 60 20 160/92 H 100 01/11/19 21:00 66 18 164/83 H 100 01/11/19 20:50 74 18 159/91 H 99 01/11/19 20:40 36.4 C L 77 18 149/82 H 100 01/11/19 17:10 36.7 C 47 L 16 116/72 98 01/11/19 16:43 68 18 122/64 98 01/11/19 14:30 70 16 126/74 95 01/11/19 14:01 72 22 109/73 01/11/19 13:58 68 18 116/70 01/11/19 12:34 37.6 C H 01/11/19 12:31 76 22 99/62 L 99 01/11/19 12:00 71 19 110/74 99 01/11/19 11:42 77 80 19 116/79 116/79 100 01/11/19 11:30 78 18 121/89 95 01/11/19 10:44 95 01/11/19 10:39 85 22 120/74 98 01/11/19 09:55 37.9 C H 78 16 128/84 97 Notes Mental Status: alert / awake / arousable and participated in evaluation Patient Amnestic to Procedure: Yes Nausea / Vomiting: adequately controlled Pain: adequately controlled Airway Patency, RR, SpO2: stable & adequate BP & HR: stable & adequate Hydration State: stable & adequate Anesthetic Complications: Pt Satisfied with anesthetic care Notes: Pt stable and comfortable in PACU. Hemodynamically appropriate, but experiencing 6 to 7 beat runs of PVCs - significantly more than were observed preop or intraop. Likely secondary to anesthetic drugs, but pt should be observed more closely overnight. In addition, patient with some swelling around his anterior neck and increasing drainage around the dressing during his PACU stay. Patient states that it is becoming increasingly difficult to swallow. No shortness of breath and oxygenating around 100% on RA. Medicine consulted and decision made to transfer to ICU overnight. Message left on Dr. Díaz's cell phone. Dr. England is cross-covering for orthopedics, so he was also updated on the patient's status as well.
[2019-01-11] MEDS ORDERED: DEXAMETHASONE SOD PHOSPHATE 6 MG in SYRINGE 0 ML IV SCH (21:30)
[2019-01-11] MEDS ORDERED: MAGNESIUM HYDROXIDE SUSP 30 ML UDC PO PRN (23:05)
[2019-01-11] MEDS ORDERED: ACETAMINOPHEN 325 MG TAB PO SCH (23:05)
[2019-01-11] MEDS ORDERED: NALOXONE HCL 0.4 MG/1 ML VIAL/CARP IV PRN (23:05)
[2019-01-11] MEDS ORDERED: LORazepam 0.5 MG/1 ML VIAL IV PRN (23:05)
[2019-01-11] MEDS ORDERED: RACEPINEPHRINE 2.25% NEBU SOLN 0.5 ML VIAL INH PRN (23:05)
[2019-01-11] MEDS ORDERED: HYDROmorphone INJ 0.5 MG/0.5 ML SYR IV PRN (23:05)
[2019-01-11] MEDS ORDERED: OXYCODONE HCL IR 5 MG TAB (IMMEDIATE RELEASE) PO PRN (23:05)
[2019-01-11] MEDS ORDERED: DEXAMETHASONE SOD PHOSPHATE 8 MG in SYRINGE 0 ML IV PRN (23:05)
[2019-01-11] MEDS ORDERED: ACETAMINOPHEN 1,000 MG/100 ML VIAL IV PRN (23:05)
[2019-01-11] MEDS ORDERED: SODIUM CHLORIDE 0.9% 1000ML 1,000 ML IV SCH (23:05)
[2019-01-11] MEDS: OLANZapine 10 MG TAB PO SCH (23:08)
--- NOTE | 2019-01-11 23:10 | Progress Note ---
Date of Service January 11, 2019 Called to transfer patient to MICU. Briefly, patient is a 63yo inmate at [facility], with history of cervical cord compression and myelopathy, progressive neurologic deficit to include right hand numbness/weakness, bilateral LE weakness, urinary and fecal incontinence and stool retention. Symptoms reported to be ongoing and progressive for appx 2 weeks. Patient had MRI of the c-spine performed which revealed retrolisthesis of C3 on C4, severe spinal stenosis, increased T2 signal in the c-spine at C2 level consistent with myelopathy. Severe spinal stenosis at C3-C4 level with spinal cord flattening. Abnormal T2 signal at C3 level x 14mm. He was taken urgently to the OR by Dr. Díaz for an anterior cervical diskectomy and fusion. Procedure well tolerated, no immediate complications. Liguori drain placed and patient sent to the MICU for recovery. Patient began complaining of anterior neck fullness and pain with swallowing. No stridor, SOB or airway edema. Dressing in place with large amount of serosanguinous drainage. Additionally patient with frequent PVCs and multiple 6-7 beat runs of NSVT. General: On physical exam he is afebrile, hemodynamically stable with hypertension, adequate oxygenation on room air with no respiratory distress or stridor Skin: dressing in place with serosanguinous drainage, marked and timed HEENT: NC/AT, pupils small and reactive bilaterally, EOMI, MMM, no airway edema, dressing removed by Vibrating Screen Operator, Liguori drain in place, no significant edema of the anterior neck, tissues are soft with palpable landmarks, thryoid cartilage and hyoid bone, c-collar in place Heart: +S1/S2, regular, frequent ectopy, no m/r/g Lungs: equal air entry bilaterally anteriorly, no rales/rhonchi/wheezes Abd: +BS, soft, NT/ND Ext: no edema, SCDs in place, Hoffmann in place Neuro: patient answers questions appropriately, MS in RUE 3/5, LUE 4/5, with muscular atrophy, RLE 4/5 and LLE 3/5 Labs and images reviewed. Assessment/Plan: 1. Subjective anterior neck swelling - no airway compromise, no OP edema, anterior neck soft with discernable landmarks. Dressing replace. Will continue to monitor output and latoya dressing. Anesthesia aware of patient as is Gen Surgery. -Monitor closely for airway involvment -Continue IV Dexamethasone -Racemic epi inh as needed for stridor -Cric tray and glidescope to be held at nurse's station -Post operative pain and nausea control 2. PVCs/NSVT - patient asymtomatic, HD stable -Check EKG x 1 -Check BMP, Mg and PO4 x 1 now and correct as needed -Tele monitoring -IVF 3. UTI - Patient with urinary retention, +UA with culture from January 10 growing staph species. Ceftriaxone, Vancomycin for now. Follow culture results 4. Schizophrenia - Continue Zyprexa 5. GERD - Continue Ranitidine 6. F/E/N - NSS +KCL, labs now and in AM, NPO 7. Ppx - SCDs, home Ranitidine 8. Dispo- Patient will remain in the MICU overnight for continued monitoring. Electronically signed by: Amado Ellison M.D. Physical Exam Vital Signs (Past 24 Hours): Last Vital Signs Temp 36.5 C 01/11/19 22:35 Pulse 75 01/11/19 22:35 Resp 18 01/11/19 22:35 BP 168/93 H 01/11/19 22:35 Pulse Ox 99 01/11/19 22:35
[2019-01-11] MEDS ORDERED: SODIUM CHLORIDE 0.9% 500 ML IV SCH (23:45)
[2019-01-11] MEDS ORDERED: POTASSIUM CHLORIDE 10 MEQ TABCR PO STA (23:45)
[2019-01-11] MEDS ORDERED: DEXTROSE 50% 50 ML SYRINGE IV PRN (23:51)
[2019-01-11] MEDS ORDERED: CARBOHYDRATES FOR HYPOGLYCEMIA PO PRN (23:51)
[2019-01-11] MEDS ORDERED: GLUCAGON FOR INJ 1 MG VIAL SQ PRN (23:51)
[2019-01-11] MEDS ORDERED: GLUCOSE 10 TABS/TUBE PO PRN (23:51)
[2019-01-11] MEDS ORDERED: GLUCOSE 40% GEL 15 GM TUBE PO PRN (23:51)
--- NOTE | 2019-01-11 23:53 | Critical Care Consultation ---
Date of Consultation January 11, 2019 Assessment & Plan (1) Anemia: Reason Critically Ill: Concern for postoperative cervical hematoma versus throat irritation secondary to endotracheal intubation PLAN: Neuro: Spinal cord injury -Postop day 0 -Examined surgical incision no evidence for cervical hematoma at this time, [place] in place and functioning -Continue steroids no evidence of anticoagulant or antiplatelet medication prior to surgery -Maintain [place] collar History mood disorder -Continue olanzapine and outpatient medications CV: Nonsustained ventricular tachycardia -Optimize electrolytes K greater than 4.5 magnesium greater than 2.2 Fluids/Renal: Normal saline with 20 K at 100 an hour 40 M EQ K-Dur given ID: Urinary tract infection: Complicated -Staphylococcal species -Continue Rocephin and vancomycin until sensitivities arise GI/Nutrition: N.p.o. -Anticipate bedside swallow in the morning Heme: Baseline anemia DVT prophylaxis: SCDs will defer chemical prophylaxis at this time secondary to concern for cord swelling Endocrine: ICU hyperglycemia protocol Continue steroids for postoperative edema -May require insulin -Sliding scale insulin ordered Vascular access: Peripheral IVs Code Status: DO NOT RESUSCITATE Present on Admission?: Yes History of Present Illness Attending Physician: Corby Rosas Patient is a 63-year-old incarcerated -[place] male who presents after approximately 2 weeks of trauma with persistent neurologic symptoms he underwent urgent anterior cord decompression surgery. Postoperatively he has had subjective sensations of difficulty swallowing and the dressing has been increasing and shadowing. I have been asked to evaluate the patient he also has had episodes of nonsustained ventricular tachycardia. Allergies Allergy/AdvReac Type Severity Reaction Status Date / Time No Known Allergies Allergy Unverified 01/11/19 12:07 Home Medications Home Medications Medication Instructions Recorded Confirmed Type acetaminophen [Tylenol] 650 mg PO UD 01/11/19 01/11/19 History olanzapine [Zyprexa] 10 mg PO HS 01/11/19 01/11/19 History Patient History Medical History Cervical spinal cord compression Cervical spine compression C3-4 cervical spine profound neuro deficits Hypertension Schizophrenia Surgical History History of eye surgery Family History Father , history is not known No problems noted. Mother , unknown health history No problems noted. 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 Other Information That Helps Us Care for You: No Safety Concerns: Feels Safe At This Time Smoking Status: Former smoker Hx Alcohol Use: No Hx Substance Use: No Physical Exam Vital Signs (Past 24 Hours): Last Vital Signs Temp 36.5 C 01/11/19 22:35 Pulse 83 01/11/19 23:12 Resp 16 01/11/19 23:12 BP 168/93 H 01/11/19 22:35 Pulse Ox 100 01/11/19 23:12 General: A thin -[place] male in a [place] J cervical collar I have reviewed the recorded vital signs Neurological: RASS score: 0, he has normal extinction of the upper and lower extremities, he has 3/5 strength in the upper extremities with flexion and hand squeeze he is also able to plantarflex and dorsiflex the left lower extremity he is very minimally able to bend the left knee in the right knee there appears to be no spontaneous dorsiflexion or plantarflexion in the right lower extremity. Of note anesthesia was present at bedside during my neurologic exam she reports this is improved from his preoperative exam Psychological: GCS 15 following complex commands Eyes: Pupils are equal, round and reactive to light, anicteric sclera. Symmetrical lids. HENT: Oropharynx is clear, moist mucous membranes. Neck: Neck initially obscured with the [place] J collar and there is shadowing on his dressing that has been marked I removed the dressing and examined the underlying tissues there was mild fullness which was palpable on the right anterior portion however the [place] drain is draining serosanguineous fluid and I am able to palpate both the right and left thyroid cartilages as well as palpate the hyoid bone. It is not indurated nor firm. Cardiovascular: Normal peripheral perfusion. Distal pulses and capillary refill intact. No JVD. Respiratory: Respirations are non-labored, no accessory muscle use. Breath sounds are equal. No stridor Gastrointestinal: Soft. Non-distended. Lymphatic: No cervical lymphadenopathy. Musculoskeletal: No deformity. No clubbing nor cyanosis. Results & Data Laboratory Results 01/11/19 01/11/19 01/11/19 Range/Units 18:00 14:20 11:07 WBC (4.8-10.8) K/uL RBC (4.7-6.1) M/uL Hgb (14.0-18.0) g/dL Hct (42-52) % MCV (80-100) fL MCH (25-34) pg MCHC (32-36) g/dL RDW Std Deviation (36.4-46.3) fL RDW Coeff of Gael (11.5-14.5) % Plt Count (130-400) K/uL MPV (7.4-10.4) fL Immature Gran % (Auto) % Neut % (Auto) % Lymph % (Auto) % [place] % (Auto) % Eos % (Auto) % Baso % (Auto) % Immature Gran # (Auto) (0.00-0.02) K/uL Neut # (Auto) (1.4-6.5) K/uL Lymph # (Auto) (1.2-3.4) K/uL [place] # (Auto) (0.11-0.59) K/uL Eos # (Auto) (0-0.5) K/uL Baso # (Auto) (0-0.2) K/uL PT (9.0-12.0) Seconds INR (0.9-1.1) APTT (21.0-31.0) Seconds PTT Ratio Sodium (136-145) mmol/L Potassium (3.5-5.1) mmol/L Chloride (98-107) mmol/L Carbon Dioxide (21-32) mmol/L Anion Gap (3-11) BUN (7-18) mg/dl Creatinine (0.6-1.4) mg/dl Est Cr Clr Drug Dosing ml/min Est GFR ( Amer) Est GFR (Non-Af Amer) BUN/Creatinine Ratio (10-20) Glucose (70-99) mg/dl Lactate (0.4-2.0) mmol/L Calcium (8.5-10.1) mg/dl Total Bilirubin (0.2-1) mg/dl AST (15-37) U/L ALT (12-78) U/L Alkaline Phosphatase (45-117) U/L Total Protein (6.4-8.2) gm/dl Albumin (3.4-5.0) gm/dl Globulin (2.5-4.0) gm/dl Albumin/Globulin Ratio (0.9-2) Procalcitonin < 0.05 (0-0.5) ng/ml Urine Color Yellow Urine Appearance Turbid H (Clear) Urine pH 7.5 (4.5-7.5) Ur Specific [place] 1.026 (1.000-1.030) Urine Protein Trace H (Negative) Urine Glucose (UA) Negative (Negative) Urine Ketones Negative (Negative) Urine Blood Negative (Negative) Urine Nitrite Positive H (Negative) Urine Bilirubin Negative (Negative) Urine Urobilinogen Negative (Negative) Ur Leukocyte Esterase 1+ H (Negative) Urine WBC (Auto) 10-30 H (0-5) /hpf Urine RBC (Auto) 0-4 (0-4) /hpf U Hyaline Cast (Auto) 1-5 (0-5) /lpf U Epithel Cells (Auto) 5-10 H (0-5) /lpf Urine Bacteria (Auto) 1+ H (Negative) Nasal Screen MRSA (PCR) Negative (Negative) Influenza Type A (PCR) (Neg) Influenza Type B (PCR) (Neg) 01/11/19 01/11/19 01/11/19 Range/Units 10:59 10:59 10:59 WBC (4.8-10.8) K/uL RBC (4.7-6.1) M/uL Hgb (14.0-18.0) g/dL Hct (42-52) % MCV (80-100) fL MCH (25-34) pg MCHC (32-36) g/dL RDW Std Deviation (36.4-46.3) fL RDW Coeff of Gael (11.5-14.5) % Plt Count (130-400) K/uL MPV (7.4-10.4) fL Immature Gran % (Auto) % Neut % (Auto) % Lymph % (Auto) % [place] % (Auto) % Eos % (Auto) % Baso % (Auto) % Immature Gran # (Auto) (0.00-0.02) K/uL Neut # (Auto) (1.4-6.5) K/uL Lymph # (Auto) (1.2-3.4) K/uL [place] # (Auto) (0.11-0.59) K/uL Eos # (Auto) (0-0.5) K/uL Baso # (Auto) (0-0.2) K/uL PT 11.0 (9.0-12.0) Seconds INR 1.1 (0.9-1.1) APTT 23.6 (21.0-31.0) Seconds PTT Ratio 0.9 Sodium 144 (136-145) mmol/L Potassium 3.6 (3.5-5.1) mmol/L Chloride 109 H (98-107) mmol/L Carbon Dioxide 29 (21-32) mmol/L Anion Gap 6.0 (3-11) BUN 40 H (7-18) mg/dl Creatinine 1.05 (0.6-1.4) mg/dl Est Cr Clr Drug Dosing 67.0 ml/min Est GFR ( Amer) 87.1 Est GFR (Non-Af Amer) 75.2 BUN/Creatinine Ratio 37.7 H (10-20) Glucose 101 H (70-99) mg/dl Lactate 1.4 (0.4-2.0) mmol/L Calcium 9.1 (8.5-10.1) mg/dl Total Bilirubin 0.7 (0.2-1) mg/dl AST 19 (15-37) U/L ALT 28 (12-78) U/L Alkaline Phosphatase 106 (45-117) U/L Total Protein 7.6 (6.4-8.2) gm/dl Albumin 3.4 (3.4-5.0) gm/dl Globulin 4.2 H (2.5-4.0) gm/dl Albumin/Globulin Ratio 0.8 L (0.9-2) Procalcitonin (0-0.5) ng/ml Urine Color Urine Appearance (Clear) Urine pH (4.5-7.5) Ur Specific [place] (1.000-1.030) Urine Protein (Negative) Urine Glucose (UA) (Negative) Urine Ketones (Negative) Urine Blood (Negative) Urine Nitrite (Negative) Urine Bilirubin (Negative) Urine Urobilinogen (Negative) Ur Leukocyte Esterase (Negative) Urine WBC (Auto) (0-5) /hpf Urine RBC (Auto) (0-4) /hpf U Hyaline Cast (Auto) (0-5) /lpf U Epithel Cells (Auto) (0-5) /lpf Urine Bacteria (Auto) (Negative) Nasal Screen MRSA (PCR) (Negative) Influenza Type A (PCR) (Neg) Influenza Type B (PCR) (Neg) 01/11/19 01/11/19 Range/Units 10:59 10:40 WBC 5.13 (4.8-10.8) K/uL RBC 3.49 L (4.7-6.1) M/uL Hgb 11.5 L (14.0-18.0) g/dL Hct 33.9 L (42-52) % MCV 97.1 (80-100) fL MCH 33.0 (25-34) pg MCHC 33.9 (32-36) g/dL RDW Std Deviation 48.7 H (36.4-46.3) fL RDW Coeff of Gael 13.7 (11.5-14.5) % Plt Count 250 (130-400) K/uL MPV 10.3 (7.4-10.4) fL Immature Gran % (Auto) 0.0 % Neut % (Auto) 80.7 % Lymph % (Auto) 6.8 % [place] % (Auto) 8.4 % Eos % (Auto) 3.9 % Baso % (Auto) 0.2 % Immature Gran # (Auto) 0.00 (0.00-0.02) K/uL Neut # (Auto) 4.14 (1.4-6.5) K/uL Lymph # (Auto) 0.35 L (1.2-3.4) K/uL [place] # (Auto) 0.43 (0.11-0.59) K/uL Eos # (Auto) 0.20 (0-0.5) K/uL Baso # (Auto) 0.01 (0-0.2) K/uL PT (9.0-12.0) Seconds INR (0.9-1.1) APTT (21.0-31.0) Seconds PTT Ratio Sodium (136-145) mmol/L Potassium (3.5-5.1) mmol/L Chloride (98-107) mmol/L Carbon Dioxide (21-32) mmol/L Anion Gap (3-11) BUN (7-18) mg/dl Creatinine (0.6-1.4) mg/dl Est Cr Clr Drug Dosing ml/min Est GFR ( Amer) Est GFR (Non-Af Amer) BUN/Creatinine Ratio (10-20) Glucose (70-99) mg/dl Lactate (0.4-2.0) mmol/L Calcium (8.5-10.1) mg/dl Total Bilirubin (0.2-1) mg/dl AST (15-37) U/L ALT (12-78) U/L Alkaline Phosphatase (45-117) U/L Total Protein (6.4-8.2) gm/dl Albumin (3.4-5.0) gm/dl Globulin (2.5-4.0) gm/dl Albumin/Globulin Ratio (0.9-2) Procalcitonin (0-0.5) ng/ml Urine Color Urine Appearance (Clear) Urine pH (4.5-7.5) Ur Specific [place] (1.000-1.030) Urine Protein (Negative) Urine Glucose (UA) (Negative) Urine Ketones (Negative) Urine Blood (Negative) Urine Nitrite (Negative) Urine Bilirubin (Negative) Urine Urobilinogen (Negative) Ur Leukocyte Esterase (Negative) Urine WBC (Auto) (0-5) /hpf Urine RBC (Auto) (0-4) /hpf U Hyaline Cast (Auto) (0-5) /lpf U Epithel Cells (Auto) (0-5) /lpf Urine Bacteria (Auto) (Negative) Nasal Screen MRSA (PCR) (Negative) Influenza Type A (PCR) Neg for Influ A (Neg) Influenza Type B (PCR) Neg for Influ B (Neg)
--- NOTE | 2019-01-12 00:03 | Critical Care Progress Note ---
Date of Service January 12, 2019 Assessment & Plan (1) Anemia: Reason Critically Ill: Concern for postoperative cervical hematoma versus throat irritation secondary to endotracheal intubation PLAN: Neuro: Spinal cord injury -Postop day 1 -Examined surgical incision no evidence for cervical hematoma at this time, Chelo in place and functioning -Continue steroids no evidence of anticoagulant or antiplatelet medication prior to surgery -Maintain [place] collar History mood disorder -Continue olanzapine and outpatient medications CV: Nonsustained ventricular tachycardia: Improved [place] -Optimize electrolytes K greater than 4.5 magnesium greater than 2.2 Fluids/Renal: Normal saline with 20 K at 100 an hour 40 M EQ K-Dur x2 today ID: Urinary tract infection: Complicated -Coag negative staph sensitive to oxacillin -De-escalate to nafcillin GI/Nutrition: Advance diet as tolerated Heme: Baseline anemia DVT prophylaxis: SCDs will defer chemical prophylaxis at this time secondary to concern for cord swelling Endocrine: ICU hyperglycemia protocol Continue steroids for postoperative edema -May require insulin -Sliding scale insulin ordered Vascular access: Peripheral IVs Code Status: DO NOT RESUSCITATE Stable for downgrade out of the ICU Subjective Subjective improvement in strength in left side increasing sensation in right lower extremity Physical Exam Vital Signs (Past 24 Hours): Last Vital Signs Temp 36.5 C 01/11/19 22:35 Pulse 83 01/11/19 23:12 Resp 16 01/11/19 23:12 BP 168/93 H 01/11/19 22:35 Pulse Ox 100 01/11/19 23:12 General: A thin -Citizen Of [place] male in a [place] cervical collar I have reviewed the recorded vital signs Neurological: RASS score: 0, he has normal extinction of the upper and lower extremities, he has 3/5 strength in the upper extremities with flexion and hand squeeze he is also able to plantarflex and dorsiflex the left lower extremity he is very minimally able to bend the left knee in the right knee there appears to be no spontaneous dorsiflexion or plantarflexion in the right lower extremity. All strength appears to be mildly improved compared to yesterday Of note anesthesia was present at bedside during my neurologic exam she reports this is improved from his preoperative exam Psychological: GCS 15 following complex commands Eyes: Pupils are equal, round and reactive to light, anicteric sclera. Symmetrical lids. HENT: Oropharynx is clear, moist mucous membranes. Neck: Improved shadowing over dressing Cardiovascular: Normal peripheral perfusion. Distal pulses and capillary refill intact. No JVD. Respiratory: Respirations are non-labored, no accessory muscle use. Breath sounds are equal. No stridor Gastrointestinal: Soft. Non-distended. Lymphatic: No cervical lymphadenopathy. Musculoskeletal: No deformity. No clubbing nor cyanosis. Results & Data Laboratory Results 01/12/19 01/12/19 01/12/19 Range/Units 11:27 04:34 04:34 WBC 6.76 (4.8-10.8) K/uL RBC 3.18 L (4.7-6.1) M/uL Hgb 10.4 L (14.0-18.0) g/dL Hct 30.7 L (42-52) % MCV 96.5 (80-100) fL MCH 32.7 (25-34) pg MCHC 33.9 (32-36) g/dL RDW Std Deviation 48.3 H (36.4-46.3) fL RDW Coeff of Gael 13.5 (11.5-14.5) % Plt Count 213 (130-400) K/uL MPV 10.5 H (7.4-10.4) fL Sodium 140 (136-145) mmol/L Potassium 3.9 (3.5-5.1) mmol/L Chloride 109 H (98-107) mmol/L Carbon Dioxide 22 (21-32) mmol/L Anion Gap 9.0 (3-11) BUN 35 H (7-18) mg/dl Creatinine 1.06 (0.6-1.4) mg/dl Est Cr Clr Drug Dosing 66.4 ml/min Est GFR ( Amer) 86.1 Est GFR (Non-Af Amer) 74.3 BUN/Creatinine Ratio 32.9 H (10-20) Glucose 121 H (70-99) mg/dl POC Glucose 113 H (70-99) Calcium 8.5 (8.5-10.1) mg/dl Magnesium 2.0 (1.8-2.4) mg/dl Procalcitonin (0-0.5) ng/ml Urine Color Urine Appearance (Clear) Urine pH (4.5-7.5) Ur Specific [place] (1.000-1.030) Urine Protein (Negative) Urine Glucose (UA) (Negative) Urine Ketones (Negative) Urine Blood (Negative) Urine Nitrite (Negative) Urine Bilirubin (Negative) Urine Urobilinogen (Negative) Ur Leukocyte Esterase (Negative) Urine WBC (Auto) (0-5) /hpf Urine RBC (Auto) (0-4) /hpf U Hyaline Cast (Auto) (0-5) /lpf U Epithel Cells (Auto) (0-5) /lpf Urine Bacteria (Auto) (Negative) Nasal Screen MRSA (PCR) (Negative) 01/12/19 01/11/19 01/11/19 Range/Units 00:21 18:00 14:20 WBC (4.8-10.8) K/uL RBC (4.7-6.1) M/uL Hgb (14.0-18.0) g/dL Hct (42-52) % MCV (80-100) fL MCH (25-34) pg MCHC (32-36) g/dL RDW Std Deviation (36.4-46.3) fL RDW Coeff of Gael (11.5-14.5) % Plt Count (130-400) K/uL MPV (7.4-10.4) fL Sodium (136-145) mmol/L Potassium (3.5-5.1) mmol/L Chloride (98-107) mmol/L Carbon Dioxide (21-32) mmol/L Anion Gap (3-11) BUN (7-18) mg/dl Creatinine (0.6-1.4) mg/dl Est Cr Clr Drug Dosing ml/min Est GFR ( Amer) Est GFR (Non-Af Amer) BUN/Creatinine Ratio (10-20) Glucose (70-99) mg/dl POC Glucose 124 H (70-99) Calcium (8.5-10.1) mg/dl Magnesium (1.8-2.4) mg/dl Procalcitonin (0-0.5) ng/ml Urine Color Yellow Urine Appearance Turbid H (Clear) Urine pH 7.5 (4.5-7.5) Ur Specific [place] 1.026 (1.000-1.030) Urine Protein Trace H (Negative) Urine Glucose (UA) Negative (Negative) Urine Ketones Negative (Negative) Urine Blood Negative (Negative) Urine Nitrite Positive H (Negative) Urine Bilirubin Negative (Negative) Urine Urobilinogen Negative (Negative) Ur Leukocyte Esterase 1+ H (Negative) Urine WBC (Auto) 10-30 H (0-5) /hpf Urine RBC (Auto) 0-4 (0-4) /hpf U Hyaline Cast (Auto) 1-5 (0-5) /lpf U Epithel Cells (Auto) 5-10 H (0-5) /lpf Urine Bacteria (Auto) 1+ H (Negative) Nasal Screen MRSA (PCR) Negative (Negative) 01/11/19 Range/Units 11:07 WBC (4.8-10.8) K/uL RBC (4.7-6.1) M/uL Hgb (14.0-18.0) g/dL Hct (42-52) % MCV (80-100) fL MCH (25-34) pg MCHC (32-36) g/dL RDW Std Deviation (36.4-46.3) fL RDW Coeff of Gael (11.5-14.5) % Plt Count (130-400) K/uL MPV (7.4-10.4) fL Sodium (136-145) mmol/L Potassium (3.5-5.1) mmol/L Chloride (98-107) mmol/L Carbon Dioxide (21-32) mmol/L Anion Gap (3-11) BUN (7-18) mg/dl Creatinine (0.6-1.4) mg/dl Est Cr Clr Drug Dosing ml/min Est GFR ( Amer) Est GFR (Non-Af Amer) BUN/Creatinine Ratio (10-20) Glucose (70-99) mg/dl POC Glucose (70-99) Calcium (8.5-10.1) mg/dl Magnesium (1.8-2.4) mg/dl Procalcitonin < 0.05 (0-0.5) ng/ml Urine Color Urine Appearance (Clear) Urine pH (4.5-7.5) Ur Specific [place] (1.000-1.030) Urine Protein (Negative) Urine Glucose (UA) (Negative) Urine Ketones (Negative) Urine Blood (Negative) Urine Nitrite (Negative) Urine Bilirubin (Negative) Urine Urobilinogen (Negative) Ur Leukocyte Esterase (Negative) Urine WBC (Auto) (0-5) /hpf Urine RBC (Auto) (0-4) /hpf U Hyaline Cast (Auto) (0-5) /lpf U Epithel Cells (Auto) (0-5) /lpf Urine Bacteria (Auto) (Negative) Nasal Screen MRSA (PCR) (Negative)
[2019-01-12] MEDS: MAGNESIUM OXIDE 400 MG TAB PO SCH ×2 (00:15→20:16)
[2019-01-12] MEDS: NSS + 20MEQ KCL 20 MEQ/1,000 ML BAG IV SCH ×2 (00:15→11:28)
[2019-01-12] MEDS: DOCUSATE SODIUM 100 MG CAP PO SCH ×3 (00:16→20:16)
[2019-01-12] MEDS: INSULIN ASPART 100 UNITS/ML 3 ML PEN SC SCH ×6 (00:27→20:55)
[2019-01-12] MEDS ORDERED: VANCOMYCIN HCL 1,000 MG in SODIUM CHLORIDE 0.9% 250 ML IV SCH (05:00)
[2019-01-12 05:11] LABS: Hematocrit (blood only) 30.7 % (42-52); Hemoglobin 10.4 g/dL (14.0-18.0); Mean Corpuscular Hgb Conc 33.9 g/dL (32-36); Mean Corpuscular Volume 96.5 fL (80-100); Mean Platelet Volume 10.5 fL (7.4-10.4); Platelet Count 213 K/uL (130-400); RDW Coefficient of Variation 13.5 % (11.5-14.5); RDW Standard Deviation 48.3 fL (36.4-46.3); Red Blood Count 3.18 M/uL (4.7-6.1); White Blood Count 6.76 K/uL (4.8-10.8)
[2019-01-12 05:32] LABS: BUN Creatinine Ratio 32.9 (10-20); Calcium 8.5 mg/dl (8.5-10.1); Creatinine Clr Calc Pharmacy 66.4 ml/min; Est GFR (African American) 86.1; Est GFR (Non-African American) 74.3; Potassium 3.9 mmol/L (3.5-5.1)
[2019-01-12] MEDS: DEXAMETHASONE SOD PHOSPHATE 6 MG in SYRINGE 0 ML IV SCH ×3 (05:36→18:14)
[2019-01-12] MEDS ORDERED: DEXAMETHASONE SOD PHOSPHATE 6 MG in SYRINGE 0 ML IV SCH (08:00)
[2019-01-12] MEDS: POTASSIUM CHLORIDE 10 MEQ TABCR PO SCH ×2 (13:47→20:17)
--- NOTE | 2019-01-12 14:19 | Family Medicine Progress Note ---
Date of Service January 12, 2019 Assessment & Plan (1) Compression of spinal cord: Pt is a 63yo inmate with a complex history of cervical cord compression and myelopathy, extremity neurological deficits w/ weakness and new onset urinary and fecal incontinence who had emergency surgery with Dr. Díaz for anterior cervical diskectomy and fusion. Cervical Spine diskectomy and fusion for cord compression and myelopathy 01/11/[address] Díaz -pt currently improving. -Will continue collar, continue steroids Urinary retention -scott in place. -catheter put out 1200ml overnight. UTI -coag neg staph grew in urine culture. Complicated UTI -Previously treated with Ceftriaxone and Vanc. Now on nafcillin. -Will continue for 14 days total ? Psychotic ds - Schizophrenia -continue Zyprexa GERD -continue ranitidine DVT Prophylaxis -SCDs because of concern for cord swelling with anticoagulants. Supervising Physician Co-Signing Physician Notes Resident Physician Supervision Note: I independently interviewed and examined the patient and verified the [place] history and physical, reviewed labs and image studies, discussed the case with the resident Dr. Schumacher and agree with the findings and care plan. Subjective Mr. Angulo stated that he had some abdominal pain and right leg numbness and tingling. Denied pain anywhere else. Denied N/V,chest pain, heart racing, con stipation. Physical Exam Vital Signs (Past 24 Hours): Last Vital Signs Temp 36.7 C 01/12/19 08:00 Pulse 74 01/12/19 10:30 Resp 12 01/12/19 10:30 BP 139/80 01/12/19 10:30 Pulse Ox 98 01/12/19 10:30 General: Alert, oriented. Laying in bed with neck brace on. HEENT PERRLA, EOMI, oropharynx moist. Chest: Nontender to palpation. CV: RRR, Normal s1, s2. Resp: Breath sounds clear bilaterally, no increased effort of breathing. Abdomen: BS+. Soft, nontender, nondistended. No guarding. No organomegaly appreciated. Extremities: SCDs on, no edema. No tenderness to palpation on right leg. Results & Data Laboratory Results Laboratory Results - last 24 hr 01/11/19 01/11/19 01/12/19 14:20 18:00 00:21 WBC RBC Hgb Hct MCV MCH MCHC RDW Std Deviation RDW Coeff of Gael Plt Count MPV Sodium Potassium Chloride Carbon Dioxide Anion Gap BUN Creatinine Est Cr Clr Drug Dosing Est GFR ( Amer) Est GFR (Non-Af Amer) BUN/Creatinine Ratio Glucose POC Glucose 124 H Calcium Magnesium Urine Color Yellow Urine Appearance Turbid H Urine pH 7.5 Ur Specific [place] 1.026 Urine Protein Trace H Urine Glucose (UA) Negative Urine Ketones Negative Urine Blood Negative Urine Nitrite Positive H Urine Bilirubin Negative Urine Urobilinogen Negative Ur Leukocyte Esterase 1+ H Urine WBC (Auto) 10-30 H Urine RBC (Auto) 0-4 U Hyaline Cast (Auto) 1-5 U Epithel Cells (Auto) 5-10 H Urine Bacteria (Auto) 1+ H Nasal Screen MRSA (PCR) Negative 01/12/19 01/12/19 01/12/19 04:34 04:34 11:27 WBC 6.76 RBC 3.18 L Hgb 10.4 L Hct 30.7 L MCV 96.5 MCH 32.7 MCHC 33.9 RDW Std Deviation 48.3 H RDW Coeff of Gael 13.5 Plt Count 213 MPV 10.5 H Sodium 140 Potassium 3.9 Chloride 109 H Carbon Dioxide 22 Anion Gap 9.0 BUN 35 H Creatinine 1.06 Est Cr Clr Drug Dosing 66.4 Est GFR ( Amer) 86.1 Est GFR (Non-Af Amer) 74.3 BUN/Creatinine Ratio 32.9 H Glucose 121 H POC Glucose 113 H Calcium 8.5 Magnesium 2.0 Urine Color Urine Appearance Urine pH Ur Specific [place] Urine Protein Urine Glucose (UA) Urine Ketones Urine Blood Urine Nitrite Urine Bilirubin Urine Urobilinogen Ur Leukocyte Esterase Urine WBC (Auto) Urine RBC (Auto) U Hyaline Cast (Auto) U Epithel Cells (Auto) Urine Bacteria (Auto) Nasal Screen MRSA (PCR) Medications Administered Home Medications acetaminophen [Tylenol] 650 mg PO UD 01/11/19 [History Confirmed 01/11/19] olanzapine [Zyprexa] 10 mg PO HS 01/11/19 [History Confirmed 01/11/19] Active Medications Acetaminophen (Tylenol) 650 mg PO UD [facility] Stop: 02/10/19 23:04 Dextrose (Dextrose 50%) 25 - 50 ml IV UD PRN; Protocol PRN Reason: Hypoglycemia Protocol Stop: 02/10/19 23:50 Docusate Sodium (Colace) 100 mg PO BID [facility] Stop: 02/10/19 23:44 Last Admin: 01/12/19 08:22 Dose: 100 mg Documented by: Epinephrine (Raccemic Epinephrine 2.25% 0.5ml) 0.5 ml INH NOW PRN PRN Reason: if stridor present Stop: 02/10/19 23:04 Glucagon (Glucagen) 1 mg SQ UD PRN; Protocol PRN Reason: Hypoglycemia Protocol Stop: 02/10/19 23:50 Glucose (Dex4 Glucose) 4 - 8 tabs PO UD PRN; Protocol PRN Reason: Hypoglycemia Protocol Stop: 02/10/19 23:50 Glucose (Glucose 40%) 15 - 30 gm PO UD PRN; Protocol PRN Reason: Hypoglycemia Protocol Stop: 02/10/19 23:50 Hydromorphone HCl (Dilaudid) 0.5 mg IV Q3H PRN PRN Reason: moderate pain (scale 4-6) Stop: 01/25/19 23:04 Ranitidine HCl 50 mg/ Dextrose 102 mls @ 200 mls/hr IV Q8H [facility] Stop: 02/10/19 20:59 Last Admin: 01/12/19 13:47 Dose: 200 mls/hr Documented by: Acetaminophen (Ofirmev) 1,000 mg in 100 mls @ 400 mls/hr IV Q8H PRN PRN Reason: pain rating 1-3 Stop: 02/10/19 23:04 Lorazepam (Ativan) 0.5 mg in 1 mls @ 1 mls/min IV Q8H PRN PRN Reason: Anxiety and/or sedation Stop: 02/10/19 23:04 Dexamethasone Sodium Phosphate (6 mg/ Syringe) 1.5 mls @ 1 mls/min IV Q6H [facility] Stop: 01/12/19 18:02 Last Admin: 01/12/19 11:28 Dose: 1 mls/min Documented by: Nafcillin Sodium 1,000 mg/ (Dextrose) 105 mls @ 100 mls/hr IV Q6H [facility] Stop: 01/21/19 13:59 Insulin Aspart (Novolog Flexpen) 0 units SC Q6 [facility] Stop: 02/11/19 00:14 Last Admin: 01/12/19 11:28 Dose: Not Given Documented by: Magnesium Hydroxide (Milk Of Magnesia) 30 ml PO Q24H PRN PRN Reason: Constipation Stop: 02/10/19 23:04 Magnesium Oxide (Mag-Ox) 400 mg PO QPM [facility] Stop: 02/10/19 23:44 Last Admin: 01/12/19 00:15 Dose: 400 mg Documented by: Miscellaneous (Carbohydrates For Hypoglycemia) 15 - 30 gm PO UD PRN PRN Reason: Hypoglycemia Treatment Stop: 02/10/19 23:50 Naloxone HCl (Narcan) 0.1 mg IV Q5M PRN PRN Reason: Oversedation/respiratory dep Stop: 02/10/19 23:04 Olanzapine (Zyprexa) 10 mg PO HS [facility] Stop: 02/10/19 20:59 Last Admin: 01/11/19 23:08 Dose: 10 mg Documented by: Ondansetron HCl (Zofran) 4 mg IV Q6H PRN PRN Reason: Nausea Stop: 02/10/19 17:39 Oxycodone HCl (Roxicodone Immediate Rel) 5 - 10 mg PO Q4H PRN PRN Reason: Pain Stop: 01/25/19 23:04 Potassium Chloride (Klor-Con M10) 40 meq PO BID [facility] Stop: 01/12/19 21:01 Last Admin: 01/12/19 13:47 Dose: 40 meq Documented by: Resident Activity Tracking Resident Involvement: Resident Care Provided Care Provided: Adult Hospital Medicine
[2019-01-12] MEDS: NAFCILLIN SODIUM 1,000 MG in DEXTROSE 5% 100 ML IV SCH ×2 (14:57→20:20)
[2019-01-12] MEDS ORDERED: Nursing to Pharmacy Communication ONE (15:15)
[2019-01-12] MEDS ORDERED: cefTRIAXone SODIUM 2,000 MG in DEXTROSE 5% 50 ML IV SCH (16:00)
[2019-01-12] MEDS: OLANZapine 10 MG TAB PO SCH (20:16)
[2019-01-13] MEDS: NAFCILLIN SODIUM 1,000 MG in DEXTROSE 5% 100 ML IV SCH ×3 (02:15→13:32)
[2019-01-13 05:36] LABS: Eosinophils # (auto) 0.01 K/uL (0-0.5); Eosinophils % (auto) 0.1 %; Hematocrit (blood only) 31.3 % (42-52); Hemoglobin 10.6 g/dL (14.0-18.0); Immature Granulocytes # (auto) 0.01 K/uL (0.00-0.02); Immature Granulocytes % (auto) 0.1 %; Lymphocytes # (auto) 0.79 K/uL (1.2-3.4); Lymphocytes % (auto) 9.7 %; Mean Corpuscular Hgb Conc 33.9 g/dL (32-36); Mean Corpuscular Volume 96.6 fL (80-100); Mean Platelet Volume 10.7 fL (7.4-10.4); Monocytes # (auto) 0.82 K/uL (0.11-0.59); Neutrophils # (auto) 6.54 K/uL (1.4-6.5); Neutrophils % (auto) 80.1 %; Platelet Count 226 K/uL (130-400); RDW Coefficient of Variation 13.5 % (11.5-14.5); RDW Standard Deviation 46.9 fL (36.4-46.3); Red Blood Count 3.24 M/uL (4.7-6.1); White Blood Count 8.17 K/uL (4.8-10.8)
[2019-01-13 06:06] LABS: Albumin Level 2.7 gm/dl (3.4-5.0); BUN Creatinine Ratio 31.3 (10-20); Calcium 8.7 mg/dl (8.5-10.1); Creatinine Clr Calc Pharmacy 79.1 ml/min; Est GFR (African American) 105.5
[2019-01-13 06:08] LABS: Albumin Globulin Ratio 0.7 (0.9-2); Bilirubin,Total 0.8 mg/dl (0.2-1); Total Protein 6.7 gm/dl (6.4-8.2)
[2019-01-13] MEDS: DOCUSATE SODIUM 100 MG CAP PO SCH ×2 (07:59→20:27)
[2019-01-13] MEDS: INSULIN ASPART 100 UNITS/ML 3 ML PEN SC SCH ×4 (08:54→20:31)
--- NOTE | 2019-01-13 11:03 | Family Medicine Progress Note ---
Date of Service January 13, 2019 Assessment & Plan (1) Compression of spinal cord: Pt is a 63yo inmate with a complex history of cervical cord compression and myelopathy, extremity neurological deficits w/ weakness and new onset urinary and fecal incontinence who had emergency surgery with Dr. Díaz for anterior cervical diskectomy and fusion. Cervical Spine diskectomy and fusion for cord compression and myelopathy 01/11/[address] Díaz -pt currently improving, post-op Day #2 -Collar has been removed, steroids stopped. -Will continue to monitor for a few more days per surgery. Urinary retention-RESOLVED -scott removed. Voiding appropriate. UTI -coag neg staph grew in urine culture. Complicated UTI -Previously treated with Ceftriaxone and Vanc. Switched to IV Nafcillin. Currently on PO Bactrim. -Will continue for 14 days total ? Psychotic ds - Schizophrenia -continue Zyprexa GERD -continue ranitidine. -switched to PO today per pt's request. F/E/N: Not receiving IV fluids currently, Full liquid diet. Consider advancing as tolerated. DVT Prophylaxis -SCDs because of concern for cord swelling with anticoagulants. Supervising Physician Co-Signing Physician Notes Resident Physician Supervision Note: I independently interviewed and examined the patient and verified the [place] history and physical, reviewed labs and image studies, discussed the case with the resident Dr. Schumacher and agree with the findings and care plan. Subjective Pt states he is feeling much better today. No longer has throat swelling feeling or dysphagia. Is able to move neck. Also states he would like to get up and walk around. Denies headaches, fevers/chills, chest pain, SOB, abdominal pain, N/V, diarrhea or constipation or leg pain. Review of Systems All systems reviewed & are unremarkable except as noted in HPI & below Physical Exam Vital Signs (Past 24 Hours): Last Vital Signs Temp 36.5 C 01/13/19 02:21 Pulse 60 01/13/19 06:53 Resp 16 01/13/19 06:53 BP 161/94 H 01/13/19 02:21 Pulse Ox 98 01/13/19 06:53 General: Alert, oriented. Laying in bed. Neck brace no longer present. HEENT: PERRLA, EOMI, oropharynx moist. Clean bandage on neck. Adequate ROM of neck without significant pain. Chest: Nontender to palpation. CV: RRR, Normal s1, s2. Resp: Breath sounds clear bilaterally, no increased effort of breathing. Abdomen: Soft, nontender, nondistended. No guarding. No organomegaly appreciated. Extremities: SCDs on left leg, no edema. No tenderness to palpation on right leg. Right knee swollen compared to leg size. Results & Data Laboratory Results Laboratory Results - last 24 hr 01/12/19 01/12/19 01/12/19 11:27 17:31 20:39 WBC RBC Hgb Hct MCV MCH MCHC RDW Std Deviation RDW Coeff of Gael Plt Count MPV Immature Gran % (Auto) Neut % (Auto) Lymph % (Auto) [place] % (Auto) Eos % (Auto) Baso % (Auto) Immature Gran # (Auto) Neut # (Auto) Lymph # (Auto) [place] # (Auto) Eos # (Auto) Baso # (Auto) Sodium Potassium Chloride Carbon Dioxide Anion Gap BUN Creatinine Est Cr Clr Drug Dosing Est GFR ( Amer) Est GFR (Non-Af Amer) BUN/Creatinine Ratio Glucose POC Glucose 113 H 115 H 130 H Calcium Total Bilirubin AST ALT Alkaline Phosphatase Total Protein Albumin Globulin Albumin/Globulin Ratio 01/13/19 01/13/19 05:12 05:12 WBC 8.17 RBC 3.24 L Hgb 10.6 L Hct 31.3 L MCV 96.6 MCH 32.7 MCHC 33.9 RDW Std Deviation 46.9 H RDW Coeff of Gael 13.5 Plt Count 226 MPV 10.7 H Immature Gran % (Auto) 0.1 Neut % (Auto) 80.1 Lymph % (Auto) 9.7 [place] % (Auto) 10.0 Eos % (Auto) 0.1 Baso % (Auto) 0.0 Immature Gran # (Auto) 0.01 Neut # (Auto) 6.54 H Lymph # (Auto) 0.79 L [place] # (Auto) 0.82 H Eos # (Auto) 0.01 Baso # (Auto) 0.00 Sodium 136 Potassium 4.0 Chloride 106 Carbon Dioxide 27 Anion Gap 3.0 BUN 28 H Creatinine 0.89 Est Cr Clr Drug Dosing 79.1 Est GFR ( Amer) 105.5 Est GFR (Non-Af Amer) 91.0 BUN/Creatinine Ratio 31.3 H Glucose 118 H POC Glucose Calcium 8.7 Total Bilirubin 0.8 AST 20 ALT 30 Alkaline Phosphatase 73 Total Protein 6.7 Albumin 2.7 L Globulin 4.0 Albumin/Globulin Ratio 0.7 L Medications Administered Home Medications acetaminophen [Tylenol] 650 mg PO UD 01/11/19 [History Confirmed 01/11/19] olanzapine [Zyprexa] 10 mg PO HS 01/11/19 [History Confirmed 01/11/19] Active Medications Acetaminophen (Tylenol) 650 mg PO UD [facility] Stop: 02/10/19 23:04 Dextrose (Dextrose 50%) 25 - 50 ml IV UD PRN; Protocol PRN Reason: Hypoglycemia Protocol Stop: 02/10/19 23:50 Docusate Sodium (Colace) 100 mg PO BID [facility] Stop: 02/10/19 23:44 Last Admin: 01/13/19 07:59 Dose: Not Given Documented by: Epinephrine (Raccemic Epinephrine 2.25% 0.5ml) 0.5 ml INH NOW PRN PRN Reason: if stridor present Stop: 02/10/19 23:04 Glucagon (Glucagen) 1 mg SQ UD PRN; Protocol PRN Reason: Hypoglycemia Protocol Stop: 02/10/19 23:50 Glucose (Dex4 Glucose) 4 - 8 tabs PO UD PRN; Protocol PRN Reason: Hypoglycemia Protocol Stop: 02/10/19 23:50 Glucose (Glucose 40%) 15 - 30 gm PO UD PRN; Protocol PRN Reason: Hypoglycemia Protocol Stop: 02/10/19 23:50 Hydromorphone HCl (Dilaudid) 0.5 mg IV Q3H PRN PRN Reason: moderate pain (scale 4-6) Stop: 01/25/19 23:04 Ranitidine HCl 50 mg/ Dextrose 102 mls @ 200 mls/hr IV Q8H [facility] Stop: 02/10/19 20:59 Last Infusion: 01/13/19 05:18 Dose: Infused Documented by: Acetaminophen (Ofirmev) 1,000 mg in 100 mls @ 400 mls/hr IV Q8H PRN PRN Reason: pain rating 1-3 Stop: 02/10/19 23:04 Lorazepam (Ativan) 0.5 mg in 1 mls @ 1 mls/min IV Q8H PRN PRN Reason: Anxiety and/or sedation Stop: 02/10/19 23:04 Nafcillin Sodium 1,000 mg/ (Dextrose) 105 mls @ 100 mls/hr IV Q6H [facility] Stop: 01/21/19 13:59 Last Infusion: 01/13/19 09:43 Dose: Infused Documented by: Insulin Aspart (Novolog Flexpen) 0 units SC ACHS [facility] Stop: 02/11/19 16:29 Last Admin: 01/13/19 08:54 Dose: Not Given Documented by: Magnesium Hydroxide (Milk Of Magnesia) 30 ml PO Q24H PRN PRN Reason: Constipation Stop: 02/10/19 23:04 Magnesium Oxide (Mag-Ox) 400 mg PO QPM [facility] Stop: 02/10/19 23:44 Last Admin: 01/12/19 20:16 Dose: 400 mg Documented by: Miscellaneous (Carbohydrates For Hypoglycemia) 15 - 30 gm PO UD PRN PRN Reason: Hypoglycemia Treatment Stop: 02/10/19 23:50 Naloxone HCl (Narcan) 0.1 mg IV Q5M PRN PRN Reason: Oversedation/respiratory dep Stop: 02/10/19 23:04 Olanzapine (Zyprexa) 10 mg PO HS [facility] Stop: 02/10/19 20:59 Last Admin: 01/12/19 20:16 Dose: 10 mg Documented by: Ondansetron HCl (Zofran) 4 mg IV Q6H PRN PRN Reason: Nausea Stop: 02/10/19 17:39 Oxycodone HCl (Roxicodone Immediate Rel) 5 - 10 mg PO Q4H PRN PRN Reason: Pain Stop: 01/25/19 23:04 Resident Activity Tracking Resident Involvement: Resident Care Provided Care Provided: Adult Hospital Medicine
[2019-01-13] MEDS: SULFA/TRIMETH 400/80MG TAB PO SCH ×2 (15:00→20:27)
[2019-01-13] MEDS: MAGNESIUM OXIDE 400 MG TAB PO SCH (20:27)
[2019-01-13] MEDS: OLANZapine 10 MG TAB PO SCH (20:27)
--- NOTE | 2019-01-14 07:39 | Operative Report ---
DATE OF OPERATION: 01/11/2019 PREOPERATIVE DIAGNOSES: Cervical myelopathy, cord compression, spinal cord edema, and quadriplegia. POSTOPERATIVE DIAGNOSES: Same including subluxation and ligamentous injury, cervical spine at C3-C4. SURGEON: Damon Díaz DO [place] TEACHER: Niko Washington PA-C PROCEDURE: Anterior cervical discectomy, fusion, allograft, and plate. DESCRIPTION OF PROCEDURE: The patient was taken to the operating room. I examined him in the ER approximately 2 hours earlier. He has profound weakness to all extremities, he had no flicker of toe, thigh, or upper extremities. He felt nothing, he was asensate. He had cord compression and instability of the cervical spine and a spondylolisthesis, 3 on 4. He was taken to the OR, he was placed in provisional traction supporting his neck, but no longitudinal traction. We scrubbed, prepped, and draped sterile. A skin incision, fascial incision, came down on the spinal cord at C3-C4. I was able to distract approximately 2 mm. I did a complete discectomy. I burred down the endplates. I was up underneath the C3 vertebrae looking for any free fragment disc. I felt that all disc material conceivable was removed. We then put an 8-mm spacer allograft. This was locked down with an anterior plate from the [employer] locked into position. Cross table x-rays looked satisfactory and good positioning of the cervical spine with the anterior implant. We then irrigated and closed in layers. Sterile dressings applied. Collar applied. The patient returned to PACU stable. There were no apparent complications. I attest to the content of the Intraoperative Record and any orders documented therein. Any exception s are noted below.
[2019-01-14 08:25] LABS: Basophils # (auto) 0.01 K/uL (0-0.2); Basophils % (auto) 0.1 %; Eosinophils # (auto) 0.27 K/uL (0-0.5); Eosinophils % (auto) 3.2 %; Hematocrit (blood only) 35.5 % (42-52); Hemoglobin 12.2 g/dL (14.0-18.0); Immature Granulocytes # (auto) 0.01 K/uL (0.00-0.02); Immature Granulocytes % (auto) 0.1 %; Lymphocytes % (auto) 14.3 %; Mean Corpuscular Hgb Conc 34.4 g/dL (32-36); Mean Corpuscular Volume 95.9 fL (80-100); Mean Platelet Volume 10.3 fL (7.4-10.4); Monocytes # (auto) 0.72 K/uL (0.11-0.59); Monocytes % (auto) 8.6 %; Neutrophils % (auto) 73.7 %; Platelet Count 254 K/uL (130-400); RDW Coefficient of Variation 13.5 % (11.5-14.5); RDW Standard Deviation 46.4 fL (36.4-46.3); White Blood Count 8.41 K/uL (4.8-10.8)
[2019-01-14 09:00] LABS: Albumin Level 2.9 gm/dl (3.4-5.0); BUN Creatinine Ratio 26.8 (10-20); Calcium 8.8 mg/dl (8.5-10.1); Creatinine Clr Calc Pharmacy 80.9 ml/min; Est GFR (African American) 106.5; Est GFR (Non-African American) 91.9; Potassium 3.6 mmol/L (3.5-5.1)
[2019-01-14 09:06] LABS: Albumin Globulin Ratio 0.7 (0.9-2); Bilirubin,Total 0.8 mg/dl (0.2-1); Globulin 4.3 gm/dl (2.5-4.0); Total Protein 7.2 gm/dl (6.4-8.2)
[2019-01-14] MEDS: SULFA/TRIMETH 400/80MG TAB PO SCH ×2 (09:09→21:12)
[2019-01-14] MEDS: DOCUSATE SODIUM 100 MG CAP PO SCH ×2 (09:09→21:12)
[2019-01-14] MEDS: INSULIN ASPART 100 UNITS/ML 3 ML PEN SC SCH ×4 (09:29→21:02)
--- NOTE | 2019-01-14 10:54 | Family Medicine Progress Note ---
Date of Service January 14, 2019 Assessment & Plan (1) Compression of spinal cord: Pt is a 63yo inmate with a complex history of cervical cord compression and myelopathy, extremity neurological deficits w/ weakness and new onset urinary and fecal incontinence who had emergency surgery with Dr. Díaz for anterior cervical diskectomy and fusion. Cervical Spine diskectomy and fusion for cord compression and myelopathy 01/11/[address] Díaz -pt currently improving, post-op Day #3 -Collar has been removed, steroids stopped. -Will continue to monitor for a few more days per surgery -okay to advance diet per surg recs F/E/N: Not receiving IV fluids currently, Full liquid diet. Consider advancing as tolerated. DVT Prophylaxis -SCDs because of concern for cord swelling with anticoagulants. (2) Urinary retention: Urinary retention-RESOLVED -scott removed. Voiding appropriate. (3) UTI (urinary tract infection): -coag neg staph grew in urine culture. Complicated UTI -Previously treated with Ceftriaxone and Vanc. Switched to IV Nafcillin. Currently on PO Bactrim. -Will continue for 14 days total (4) GERD (gastroesophageal reflux disease): -continue ranitidine PO (5) Thought disorder: ? Psychotic dz - Schizophrenia -continue Zyprexa Supervising Physician Co-Signing Physician Notes Feeling okay, pain controlled. Would like to use walker, would like to eat real food. Vitals noted, in general he is in no distress. HEENTnormocephalic atraumatic mucous membranes are moist. Breathing is unlabored no accessory muscle use. Skin shows no rashes no pallor or icterus. His anterior cervical wound is dressed appears clean dry and intact Cervical cord compressionappearing to be doing okay postop, agree with orthopedic surgery that he would do best to the spinal rehab center. PT/OT eval and treat, disposition as best as can be arranged by the [facility]dc system to meet his needs. DVT prophylaxis SCDs. Subjective Mr. Angulo states he feels improved today overall. He is requesting that his diet be advanced. He tolerated breakfast without difficulty. He states he has not had any urinary retention difficulties, is able to urinate on own, and feels urge to urinate. He denies any bowel incontinence. He denies fever, chills, shortness of breath, chest pain, nausea, vomiting, diarrhea. He states that right upper and lower extremity weakness and numbness have improved. Physical Exam Vital Signs (Past 24 Hours): Last Vital Signs Temp 37.3 C 01/14/19 07:00 Pulse 76 01/14/19 07:47 Resp 14 01/14/19 07:47 BP 143/101 H 01/14/19 07:00 Pulse Ox 96 01/14/19 07:47 Constitutional: WD/WN, vitals as above cooperative and comfortable right lower extremity shackled to bed Eyes: + anicteric sclerae and EOM intact bilaterally Neck: anterior neck bandage in place, intact, dry. Respiratory: normal respiratory effort, lungs clear to auscultation Cardiovascular: Rate/Rhythm: regular rate and regular rhythm Extremities: no pedal edema Gastrointestinal (Abdomen): Inspection/Auscultation: normal bowel sounds Percussion/Palpation: abdomen soft; abdomen nontender, no guarding and abdomen not rigid Musculoskeletal: right extremity weakness with decreased right hand manager ed compared to left, decreased right hand finger dexterity, decreased right upper extremity strength to flexion and extremity of upper arm. He has right lower extremity weakness 2/5 to right straight leg raise, decreased foot right lower extremity plantar and dorsiflexion. Decreased sensation to right lower and upper extremity as compared to left to gross touch. Skin: no rashes, warm and dry Neurologic: moves all extremities and awake Psychiatric: A+Ox3, euthymic affect Results & Data Laboratory Results Laboratory Results - last 24 hr 01/13/19 01/13/19 01/13/19 12:15 16:58 20:08 WBC RBC Hgb Hct MCV MCH MCHC RDW Std Deviation RDW Coeff of Gael Plt Count MPV Immature Gran % (Auto) Neut % (Auto) Lymph % (Auto) [place] % (Auto) Eos % (Auto) Baso % (Auto) Immature Gran # (Auto) Neut # (Auto) Lymph # (Auto) [place] # (Auto) Eos # (Auto) Baso # (Auto) Sodium Potassium Chloride Carbon Dioxide Anion Gap BUN Creatinine Est Cr Clr Drug Dosing Est GFR ( Amer) Est GFR (Non-Af Amer) BUN/Creatinine Ratio Glucose POC Glucose 84 90 181 H Calcium Total Bilirubin AST ALT Alkaline Phosphatase Total Protein Albumin Globulin Albumin/Globulin Ratio 01/14/19 01/14/19 01/14/19 08:03 08:11 08:11 WBC 8.41 RBC 3.70 L Hgb 12.2 L Hct 35.5 L MCV 95.9 MCH 33.0 MCHC 34.4 RDW Std Deviation 46.4 H RDW Coeff of Gael 13.5 Plt Count 254 MPV 10.3 Immature Gran % (Auto) 0.1 Neut % (Auto) 73.7 Lymph % (Auto) 14.3 [place] % (Auto) 8.6 Eos % (Auto) 3.2 Baso % (Auto) 0.1 Immature Gran # (Auto) 0.01 Neut # (Auto) 6.20 Lymph # (Auto) 1.20 [place] # (Auto) 0.72 H Eos # (Auto) 0.27 Baso # (Auto) 0.01 Sodium 137 Potassium 3.6 Chloride 102 Carbon Dioxide 27 Anion Gap 7.0 BUN 23 H Creatinine 0.87 Est Cr Clr Drug Dosing 80.9 Est GFR ( Amer) 106.5 Est GFR (Non-Af Amer) 91.9 BUN/Creatinine Ratio 26.8 H Glucose 86 POC Glucose 94 Calcium 8.8 Total Bilirubin 0.8 AST 25 ALT 38 Alkaline Phosphatase 78 Total Protein 7.2 Albumin 2.9 L Globulin 4.3 H Albumin/Globulin Ratio 0.7 L Medications Administered Docusate Sodium (Colace) 100 mg PO BID CHALINO Stop: 02/10/19 23:44 Last Admin: 01/14/19 09:09 Dose: 100 mg Documented by: [id number] Admin: 01/13/19 20:27 Dose: 100 mg Documented by: [id number] Admin: 01/13/19 07:59 Dose: Not Given Documented by: [id number] Admin: 01/12/19 20:16 Dose: 100 mg Documented by: [id number] Admin: 01/12/19 08:22 Dose: 100 mg Documented by: [id number] Admin: 01/12/19 00:16 Dose: 100 mg Documented by: [id number] Insulin Aspart (Novolog Flexpen) 0 units SC ACHS CHALINO Stop: 02/11/19 16:29 Last Admin: 01/14/19 09:29 Dose: Not Given Documented by: [id number] Cosigned by: [id number] Admin: 01/13/19 20:31 Dose: Not Given Documented by: [id number] Admin: 01/13/19 18:20 Dose: Not Given Documented by: [id number] Cosigned by: [id number] Admin: 01/13/19 13:08 Dose: Not Given Documented by: [id number] Cosigned by: [id number] Admin: 01/13/19 08:54 Dose: Not Given Documented by: [id number] Cosigned by: [id number] Admin: 01/12/19 20:55 Dose: Not Given Documented by: [id number] Admin: 01/12/19 18:30 Dose: Not Given Documented by: [id number] Cosigned by: [id number] Magnesium Oxide (Mag-Ox) 400 mg PO QPM CHALINO Stop: 02/10/19 23:44 Last Admin: 01/13/19 20:27 Dose: 400 mg Documented by: [id number] Admin: 01/12/19 20:16 Dose: 400 mg Documented by: [id number] Admin: 01/12/19 00:15 Dose: 400 mg Documented by: [id number] Olanzapine (Zyprexa) 10 mg PO HS CHALINO Stop: 02/10/19 20:59 Last Admin: 01/13/19 20:27 Dose: 10 mg Documented by: [id number] Admin: 01/12/19 20:16 Dose: 10 mg Documented by: [id number] Admin: 01/11/19 23:08 Dose: 10 mg Documented by: [id number] Ranitidine HCl (Zantac) 150 mg PO BID CHALINO Stop: 02/12/19 13:34 Last Admin: 01/14/19 09:09 Dose: 150 mg Documented by: [id number] Admin: 01/13/19 20:27 Dose: 150 mg Documented by: [id number] Admin: 01/13/19 15:00 Dose: 150 mg Documented by: [id number] Trimethoprim/Sulfamethoxazole (Septra 400/80mg Tab) 1 tab PO Q12 CHALINO Stop: 01/23/19 14:29 Last Admin: 01/14/19 09:09 Dose: 1 tab Documented by: [id number] Admin: 01/13/19 20:27 Dose: 1 tab Documented by: [id number] Admin: 01/13/19 15:00 Dose: 1 tab Documented by: [id number] (1) UTI (urinary tract infection) Hematuria presence: without hematuria Urinary tract infection type: acute cystitis Qualified Code(s): N30.00 - Acute cystitis without hematuria
--- NOTE | 2019-01-14 15:12 | Progress Note ---
DATE: 01/14/2019 SUBJECTIVE: He is alert, oriented, very thankful patient. OBJECTIVE: He is getting some improvement of his neurological status, particularly his right upper extremity. Right lower extremity, there is some flicker of strength. 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 IMPRESSION: Status post urgent surgery for spinal cord compression and total instability and fracture subluxation at C3-C4 cervical spine. PLAN: We will get him up and out of bed today. Hopefully, get him ambulatory if at all possible. Will probably wheelchair bound for many weeks. He may eventually get up with a walker. It is too early to tell. He will need a spinal cord injury rehabilitation unit at a major facility in my opinion.
[2019-01-14] MEDS: MAGNESIUM OXIDE 400 MG TAB PO SCH (21:13)
[2019-01-14] MEDS: OLANZapine 10 MG TAB PO SCH (21:13)
[2019-01-15 06:12] LABS: Basophils # (auto) 0.02 K/uL (0-0.2); Basophils % (auto) 0.2 %; Eosinophils # (auto) 0.12 K/uL (0-0.5); Eosinophils % (auto) 1.4 %; Hematocrit (blood only) 32.1 % (42-52); Hemoglobin 11.1 g/dL (14.0-18.0); Immature Granulocytes # (auto) 0.02 K/uL (0.00-0.02); Immature Granulocytes % (auto) 0.2 %; Lymphocytes # (auto) 1.58 K/uL (1.2-3.4); Lymphocytes % (auto) 18.4 %; Mean Corpuscular Hgb Conc 34.6 g/dL (32-36); Mean Corpuscular Volume 95.8 fL (80-100); Mean Platelet Volume 9.9 fL (7.4-10.4); Monocytes # (auto) 0.54 K/uL (0.11-0.59); Monocytes % (auto) 6.3 %; Neutrophils # (auto) 6.32 K/uL (1.4-6.5); Neutrophils % (auto) 73.5 %; Platelet Count 224 K/uL (130-400); RDW Coefficient of Variation 13.4 % (11.5-14.5); RDW Standard Deviation 46.2 fL (36.4-46.3); Red Blood Count 3.35 M/uL (4.7-6.1)
[2019-01-15 06:45] LABS: Albumin Level 2.8 gm/dl (3.4-5.0); BUN Creatinine Ratio 23.7 (10-20); Calcium 8.3 mg/dl (8.5-10.1); Creatinine Clr Calc Pharmacy 60.7 ml/min; Est GFR (African American) 77.2; Est GFR (Non-African American) 66.7; Potassium 3.5 mmol/L (3.5-5.1)
[2019-01-15 06:48] LABS: Albumin Globulin Ratio 0.7 (0.9-2); Bilirubin,Total 0.7 mg/dl (0.2-1); Total Protein 6.8 gm/dl (6.4-8.2)
[2019-01-15] MEDS: SULFA/TRIMETH 400/80MG TAB PO SCH ×2 (09:15→20:36)
[2019-01-15] MEDS: DOCUSATE SODIUM 100 MG CAP PO SCH ×2 (09:15→20:36)
[2019-01-15] MEDS: INSULIN ASPART 100 UNITS/ML 3 ML PEN SC SCH ×4 (09:20→22:30)
--- NOTE | 2019-01-15 10:34 | Family Medicine Progress Note ---
Date of Service January 15, 2019 Assessment & Plan (1) Compression of spinal cord: Pt is a 63yo inmate with a complex history of cervical cord compression and myelopathy, extremity neurological deficits w/ weakness and new onset urinary and fecal incontinence who had emergency surgery with Dr. Díaz for anterior cervical diskectomy and fusion. Cervical Spine diskectomy and fusion for cord compression and myelopathy 01/11/[address] Díaz -pt currently improving, post-op Day #4 -Collar has been removed, steroids stopped. -Will continue to monitor for a few more days per surgery -okay to advance diet per surg recs -recommendation was for acute inpatient rehab, case management discussed with correctional facility who approved patient to be discharged to a non- correctional rehab facility, a referral was made to [facility] for acute inpatient rehab. Accepting physician requested a neuro and psychiatry consult be made prior to accepting Mr. Angulo as patient. Consult orders were placed. F/E/N: Not receiving IV fluids currently, Full liquid diet. Consider advancing as tolerated. DVT Prophylaxis -SCDs because of concern for cord swelling with anticoagulants. (2) Urinary retention: Urinary retention-RESOLVED -scott removed. Voiding appropriate. (3) UTI (urinary tract infection): -coag neg staph grew in urine culture. Complicated UTI -Previously treated with Ceftriaxone and Vanc. Switched to IV Nafcillin. Currently on PO Bactrim. -Will continue for 14 days total (4) GERD (gastroesophageal reflux disease): -continue ranitidine PO (5) Thought disorder: ? Psychotic dz - Schizophrenia -continue Zyprexa Supervising Physician Co-Signing Physician Notes Feeling okay, pain controlled. Eating well, was able to get out of bed before. When discussing rehabs, and the potential of needing to change presents to be able to get more therapy, he noted that he wanted to stay at [facility] because he likes the [employer] there, but after discussing that lack of aggressive rehab now could permanently impact his ability to ambulate, he decided that it would be better to rehab more aggressively now. Vitals noted, in general he is in no distress. HEENTnormocephalic atraumatic mucous membranes are moist. Breathing is unlabored no accessory muscle use. Skin shows no rashes no pallor or icterus. His anterior cervical wound is dressed appears clean dry and intact Cervical cord compressionappearing to be doing okay postop, after discussion willing to go wherever he can get the best rehab, apparently in discussions with the custodial system, case management notes that they are allowing him to go to an actual rehab facility. PT/OT eval and treat DVT prophylaxis SCDs. Subjective Mr. Angulo states he feels improved today overall. He is reporting improvement with extremity weakness. He tolerated breakfast without difficulty. He states he has not had any urinary retention difficulties, is able to urinate on own, and feels urge to urinate. He denies any bowel incontinence. He denies fever, chills, shortness of breath, chest pain, nausea, vomiting, diarrhea. Physical Exam Vital Signs (Past 24 Hours): Last Vital Signs Temp 37.0 C 01/15/19 07:32 Pulse 68 01/15/19 07:32 Resp 16 01/15/19 07:32 BP 138/90 01/15/19 07:32 Pulse Ox 99 01/15/19 07:32 Constitutional: WD/WN, vitals as above cooperative and comfortable Eyes: + anicteric sclerae and EOM intact bilaterally Respiratory: normal respiratory effort, lungs clear to auscultation Cardiovascular: Rate/Rhythm: regular rate and regular rhythm Extremities: no pedal edema Gastrointestinal (Abdomen): Inspection/Auscultation: normal bowel sounds Percussion/Palpation: abdomen soft; abdomen nontender, no guarding and abdomen not rigid Musculoskeletal: right extremity weakness with decreased right hand guide cruise compared to left but seems mildly improved from yesterday, decreased right upper extremity strength to flexion and extremity of upper arm. He has right lower extremity weakness 2/5 to right straight leg raise, decreased foot right lower extremity plantar and dorsiflexion. Decreased sensation to right lower and upper extremity as compared to left to gross touch. Skin: no rashes, warm and dry Neurologic: moves all extremities and awake Psychiatric: A+Ox3, euthymic affect Results & Data Laboratory Results Laboratory Results - last 24 hr 01/14/19 01/14/19 01/14/19 12:19 17:00 20:37 WBC RBC Hgb Hct MCV MCH MCHC RDW Std Deviation RDW Coeff of Gael Plt Count MPV Immature Gran % (Auto) Neut % (Auto) Lymph % (Auto) [place] % (Auto) Eos % (Auto) Baso % (Auto) Immature Gran # (Auto) Neut # (Auto) Lymph # (Auto) [place] # (Auto) Eos # (Auto) Baso # (Auto) Sodium Potassium Chloride Carbon Dioxide Anion Gap BUN Creatinine Est Cr Clr Drug Dosing Est GFR ( Amer) Est GFR (Non-Af Amer) BUN/Creatinine Ratio Glucose POC Glucose 82 93 130 H Calcium Total Bilirubin AST ALT Alkaline Phosphatase Total Protein Albumin Globulin Albumin/Globulin Ratio 01/15/19 01/15/19 01/15/19 05:59 05:59 08:05 WBC 8.60 RBC 3.35 L Hgb 11.1 L Hct 32.1 L MCV 95.8 MCH 33.1 MCHC 34.6 RDW Std Deviation 46.2 RDW Coeff of Gael 13.4 Plt Count 224 MPV 9.9 Immature Gran % (Auto) 0.2 Neut % (Auto) 73.5 Lymph % (Auto) 18.4 [place] % (Auto) 6.3 Eos % (Auto) 1.4 Baso % (Auto) 0.2 Immature Gran # (Auto) 0.02 Neut # (Auto) 6.32 Lymph # (Auto) 1.58 [place] # (Auto) 0.54 Eos # (Auto) 0.12 Baso # (Auto) 0.02 Sodium 136 Potassium 3.5 Chloride 102 Carbon Dioxide 29 Anion Gap 5.0 BUN 27 H Creatinine 1.16 Est Cr Clr Drug Dosing 60.7 Est GFR ( Amer) 77.2 Est GFR (Non-Af Amer) 66.7 BUN/Creatinine Ratio 23.7 H Glucose 90 POC Glucose 90 Calcium 8.3 L Total Bilirubin 0.7 AST 40 H ALT 43 Alkaline Phosphatase 78 Total Protein 6.8 Albumin 2.8 L Globulin 4.0 Albumin/Globulin Ratio 0.7 L Medications Administered Docusate Sodium (Colace) 100 mg PO BID CHALINO Stop: 02/10/19 23:44 Last Admin: 01/15/19 09:15 Dose: 100 mg Documented by: [id number] Admin: 01/14/19 21:12 Dose: 100 mg Documented by: [id number] Admin: 01/14/19 09:09 Dose: 100 mg Documented by: [id number] Admin: 01/13/19 20:27 Dose: 100 mg Documented by: [id number] Admin: 01/13/19 07:59 Dose: Not Given Documented by: [id number] Admin: 01/12/19 20:16 Dose: 100 mg Documented by: [id number] Admin: 01/12/19 08:22 Dose: 100 mg Documented by: [id number] Admin: 01/12/19 00:16 Dose: 100 mg Documented by: [id number] Insulin Aspart (Novolog Flexpen) 0 units SC ACHS CHALINO Stop: 02/11/19 16:29 Last Admin: 01/15/19 09:20 Dose: Not Given Documented by: [id number] Admin: 01/14/19 21:02 Dose: Not Given Documented by: [id number] Cosigned by: [id number] Admin: 01/14/19 18:39 Dose: Not Given Documented by: [id number] Cosigned by: [id number] Admin: 01/14/19 13:38 Dose: Not Given Documented by: [id number] Cosigned by: [id number] Admin: 01/14/19 09:29 Dose: Not Given Documented by: [id number] Cosigned by: [id number] Admin: 01/13/19 20:31 Dose: Not Given Documented by: [id number] Admin: 01/13/19 18:20 Dose: Not Given Documented by: [id number] Cosigned by: [id number] Admin: 01/13/19 13:08 Dose: Not Given Documented by: [id number] Cosigned by: [id number] Admin: 01/13/19 08:54 Dose: Not Given Documented by: [id number] Cosigned by: [id number] Admin: 01/12/19 20:55 Dose: Not Given Documented by: [id number] Admin: 01/12/19 18:30 Dose: Not Given Documented by: [id number] Cosigned by: [id number] Magnesium Oxide (Mag-Ox) 400 mg PO QPM CHALINO Stop: 02/10/19 23:44 Last Admin: 01/14/19 21:13 Dose: 400 mg Documented by: [id number] Admin: 01/13/19 20:27 Dose: 400 mg Documented by: [id number] Admin: 01/12/19 20:16 Dose: 400 mg Documented by: [id number] Admin: 01/12/19 00:15 Dose: 400 mg Documented by: [id number] Olanzapine (Zyprexa) 10 mg PO HS CHALINO Stop: 02/10/19 20:59 Last Admin: 01/14/19 21:13 Dose: 10 mg Documented by: [id number] Admin: 01/13/19 20:27 Dose: 10 mg Documented by: [id number] Admin: 01/12/19 20:16 Dose: 10 mg Documented by: [id number] Admin: 01/11/19 23:08 Dose: 10 mg Documented by: [id number] Ranitidine HCl (Zantac) 150 mg PO BID CHALINO Stop: 02/12/19 13:34 Last Admin: 01/15/19 09:15 Dose: 150 mg Documented by: [id number] Admin: 01/14/19 21:13 Dose: 150 mg Documented by: [id number] Admin: 01/14/19 09:09 Dose: 150 mg Documented by: [id number] Admin: 01/13/19 20:27 Dose: 150 mg Documented by: [id number] Admin: 01/13/19 15:00 Dose: 150 mg Documented by: [id number] Trimethoprim/Sulfamethoxazole (Septra 400/80mg Tab) 1 tab PO Q12 CHALINO Stop: 01/23/19 14:29 Last Admin: 01/15/19 09:15 Dose: 1 tab Documented by: [id number] Admin: 01/14/19 21:12 Dose: 1 tab Documented by: [id number] Admin: 01/14/19 09:09 Dose: 1 tab Documented by: [id number] Admin: 01/13/19 20:27 Dose: 1 tab Documented by: [id number] Admin: 01/13/19 15:00 Dose: 1 tab Documented by: [id number] (1) UTI (urinary tract infection) Hematuria presence: without hematuria Urinary tract infection type: acute cystitis Qualified Code(s): N30.00 - Acute cystitis without hematuria
[2019-01-15] MEDS: OLANZapine 10 MG TAB PO SCH (20:36)
[2019-01-15] MEDS: MAGNESIUM OXIDE 400 MG TAB PO SCH (20:36)
[2019-01-16 06:13] LABS: Hematocrit (blood only) 31.1 % (42-52); Hemoglobin 10.6 g/dL (14.0-18.0); Mean Corpuscular Hgb Conc 34.1 g/dL (32-36); Mean Corpuscular Volume 96.3 fL (80-100); Platelet Count 227 K/uL (130-400); RDW Coefficient of Variation 13.4 % (11.5-14.5); RDW Standard Deviation 46.7 fL (36.4-46.3); Red Blood Count 3.23 M/uL (4.7-6.1)
[2019-01-16 06:55] LABS: Calcium 8.4 mg/dl (8.5-10.1); Creatinine Clr Calc Pharmacy 71.8 ml/min; Est GFR (African American) 94.7; Est GFR (Non-African American) 81.7; Potassium 3.5 mmol/L (3.5-5.1)
[2019-01-16] MEDS: INSULIN ASPART 100 UNITS/ML 3 ML PEN SC SCH ×4 (08:55→20:50)
[2019-01-16] MEDS: DOCUSATE SODIUM 100 MG CAP PO SCH ×2 (09:12→20:06)
[2019-01-16] MEDS: SULFA/TRIMETH 400/80MG TAB PO SCH ×2 (09:12→20:07)
--- NOTE | 2019-01-16 09:41 | Neurology Consultation ---
Date of Consultation January 16, 2019 Assessment & Plan (1) Cervical spinal cord compression: This is a 63-year-old male who presented with rapidly worsening sensory changes and weakness mostly on the right arm and leg. Patient does have some muscle atrophy on the right potentially indicating that his symptoms were going on longer than what was reported. He denies any acute injury to the neck. Patient was found on MRI to have severe cervical stenosis at C3/C4 with spinal cord myelopathy. Patient reports significant improvement with his sensation and weakness since cervical decompression and fusion. Overall his signs and symptoms seem to be consistent with a cervical spinal cord lesion. Recommendations: I do not think that any additional MRI imaging is needed. Agree with acute rehab Thank you for allowing me to participate in this patient's care. If there is any questions or concerns, feel free to call/page me. History of Present Illness Reason for Consultation: Requested evaluation before discharge to rehab Attending Physician: Gómez Cardenas DO History of Present Illness This is a 63-year-old incarcerated male who reports sudden onset of numbness and weakness mostly of his right arm and leg starting 2 weeks ago which then proceeded to urinary incontinence a day before presentation. Patient was found to have a cystoscopy severe spinal stenosis at C3/C4 with spinal cord flattening and myelopathy. Patient went for urgent cervical decompression and fusion. He reports that since surgery sensation has returned on his right side and his strength is slowly improving. He denies any symptoms in the face. No numbness or weakness of the face. No visual changes. No trouble with swallowing or speaking. He does report that his urinary control seems to be coming back as well. No additional concerns at today's evaluation. MRI of the C-spine report and images reviewed by myself. Confirmed that patient does have a severe spinal stenosis at C3/C4 with spinal cord flattening and T2 signal change of the cord indicating myelopathy. Thoracic MRI was unremarkable Allergies Allergy/AdvReac Type Severity Reaction Status Date / Time No Known Allergies Allergy Unverified 01/11/19 12:07 Home Medications Home Medications Medication Instructions Recorded Confirmed Type acetaminophen [Tylenol] 650 mg PO UD 01/11/19 01/11/19 History olanzapine [Zyprexa] 10 mg PO HS 01/11/19 01/11/19 History Patient History Medical History Cervical spinal cord compression Cervical spine compression C3-4 cervical spine profound neuro deficits Hypertension Schizophrenia Surgical History History of eye surgery Family History Father , history is not known No problems noted. Mother , unknown health history No problems noted. 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 Other Information That Helps Us Care for You: No Safety Concerns: Feels Safe At This Time Smoking Status: Former smoker Hx Alcohol Use: No Hx Substance Use: No Review of Systems Complete review of systems otherwise negative except for the above-noted in HPI Physical Exam Vital Signs (Past 24 Hours): Last Vital Signs Temp 37.1 C 01/16/19 07:34 Pulse 81 01/16/19 07:40 Resp 18 01/16/19 07:40 BP 139/70 01/16/19 07:34 Pulse Ox 98 01/16/19 07:40 Physical Exam: Gen.: Patient is alert and oriented in no acute distress lying in bed Heart: Regular rate and rhythm Extremities: No gross deformities or rashes noted Neurological examination: Mental status: Patient is alert and oriented to person place and time. Able to give his own history. Good fund of knowledge. Attention concentration normal for the situation. Remote and recent memory seem intact Speech is fluent without any dysarthria or aphasia noted Cranial nerves: Visual torres intact to confrontation. Funduscopic examination was difficult to visualize. Pupils equally round and reactive to light. Extraocular muscles intact without nystagmus. No facial asymmetry noted. Facial sensation intact. Tongue midline. Good palatal elevation. Good shoulder shrug bilaterally. Hearing grossly intact voice. Strength: 5/5 both proximal and distal in lef pablo and lower extremities. Right deltoid 4/5, right biceps/triceps 4/5, right wrist extension 3/5, right finger extension 2/5, thumb abduction 3/5, finger flexion 4/5. Right hip flexion 2/5, knee extension 2/5, dorsiflexion 3/5, plantarflexion 4/5 on the right. Tone is normal, but notable muscle atrophy of the right hand and forearm compared to the left. Sensation: Grossly intact to light touch in all extremities and anterior chest wall Deep tendon reflexes: +1 in bilateral biceps and patellar. Toes are upgoing on the right to plantar stimulation and equivocal on the left Coordination: Patient has good finger to nose without dysmetria. Station within the bed is normal.
--- NOTE | 2019-01-16 10:10 | Progress Note ---
DATE: 01/16/2019 SUBJECTIVE: The patient is making a progress. He is getting some strength back to his extremities. His wound is clean and dry. OBJECTIVE: His vital signs are stable. He is alert, oriented. No chest pain. ASSESSMENT: Status post reconstructive spine surgery for spinal cord compression and complete quadriplegia. PLAN: Get him up and ambulatory today. Hopefully get him discharged home in the next couple days back to the long term I suppose. He will need rehab several days a week. It would be a long process. He will need a walker for support as well.
--- NOTE | 2019-01-16 10:52 | Family Medicine Progress Note ---
Date of Service January 16, 2019 Assessment & Plan (1) Compression of spinal cord: Pt is a 63yo inmate with a complex history of cervical cord compression and myelopathy, extremity neurological deficits w/ weakness and new onset urinary and fecal incontinence who had emergency surgery with Dr. Díaz for anterior cervical diskectomy and fusion. Cervical Spine diskectomy and fusion for cord compression and myelopathy 01/11/[address] Díaz -pt currently improving, post-op Day #5 -Collar has been removed, steroids stopped. -Will continue to monitor for a few more days per surgery -okay to advance diet per surg recs -recommendation was for acute inpatient rehab, case management discussed with correctional facility who approved patient to be discharged to a non- correctional rehab facility, a referral was made to [facility] for acute inpatient rehab. Accepting physician requested a neuro and psychiatry consult be made prior to accepting Mr. Angulo as patient. Consult orders were placed. F/E/N: Not receiving IV fluids currently, Full liquid diet. Consider advancing as tolerated. DVT Prophylaxis -SCDs because of concern for cord swelling with anticoagulants. (2) Urinary retention: Urinary retention-RESOLVED -scott removed. Voiding appropriate. (3) UTI (urinary tract infection): -coag neg staph grew in urine culture. Complicated UTI -Previously treated with Ceftriaxone and Vanc. Switched to IV Nafcillin. Currently on PO Bactrim. -Will continue for 14 days total (4) GERD (gastroesophageal reflux disease): -continue ranitidine PO (5) Thought disorder: ? Psychotic dz - Schizophrenia -continue Zyprexa Supervising Physician Co-Signing Physician Notes Feeling okay, pain controlled. Eating well. Willing to go to rehab. Vitals noted, in general he is in no distress. HEENTnormocephalic atraumatic mucous membranes are moist. Breathing is unlabored no accessory muscle use. Skin shows no rashes no pallor or icterus. His anterior cervical wound is dressed appears clean dry and intact Cervical cord compressionappearing to be doing okay postop, will be going to rehab, it sounds to be tomorrow. PT/OT eval and treat ongoing. DVT prophylaxis SCDs. Subjective Mr. Angulo has no new acute concerns. He is aware of acute rehab pending neuro and pysch consult. He states that his weakness is stable, no difficulty with breathing or worsening of symptoms. No fever, no chills, no nausea, vomiting or diarrhea. Physical Exam Vital Signs (Past 24 Hours): Last Vital Signs Temp 37.1 C 01/16/19 07:34 Pulse 81 01/16/19 07:40 Resp 18 01/16/19 07:40 BP 139/70 01/16/19 07:34 Pulse Ox 98 01/16/19 07:40 Constitutional: WD/WN, vitals as above cooperative and comfortable Eyes: + anicteric sclerae and EOM intact bilaterally Respiratory: normal respiratory effort, lungs clear to auscultation Cardiovascular: Rate/Rhythm: regular rate and regular rhythm Extremities: no pedal edema Gastrointestinal (Abdomen): Inspection/Auscultation: normal bowel sounds Percussion/Palpation: abdomen soft; abdomen nontender, no guarding and abdomen not rigid Musculoskeletal: right extremity weakness with 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 He has right lower extremity weakness 2/5 to right straight leg raise, decreased foot right lower extremity plantar and dorsiflexion. Decreased sensation to right lower and upper extremity as compared to left to gross touch. Skin: no rashes, warm and dry Neurologic: moves all extremities and awake Psychiatric: A+Ox3, euthymic affect Results & Data Laboratory Results Laboratory Results - last 24 hr 01/15/19 01/15/19 01/15/19 12:09 17:18 22:18 WBC RBC Hgb Hct MCV MCH MCHC RDW Std Deviation RDW Coeff of Gael Plt Count MPV Sodium Potassium Chloride Carbon Dioxide Anion Gap BUN Creatinine Est Cr Clr Drug Dosing Est GFR ( Amer) Est GFR (Non-Af Amer) BUN/Creatinine Ratio Glucose POC Glucose 87 88 112 H Calcium 01/16/19 01/16/19 01/16/19 06:01 06:01 07:57 WBC 8.00 RBC 3.23 L Hgb 10.6 L Hct 31.1 L MCV 96.3 MCH 32.8 MCHC 34.1 RDW Std Deviation 46.7 H RDW Coeff of Gael 13.4 Plt Count 227 MPV 10.0 Sodium 140 Potassium 3.5 Chloride 108 H Carbon Dioxide 27 Anion Gap 6.0 BUN 20 H Creatinine 0.98 Est Cr Clr Drug Dosing 71.8 Est GFR ( Amer) 94.7 Est GFR (Non-Af Amer) 81.7 BUN/Creatinine Ratio 20.0 Glucose 90 POC Glucose 92 Calcium 8.4 L Medications Administered Docusate Sodium (Colace) 100 mg PO BID CHALINO Stop: 02/10/19 23:44 Last Admin: 01/16/19 09:12 Dose: 100 mg Documented by: [id number] Admin: 01/15/19 20:36 Dose: 100 mg Documented by: [id number] Admin: 01/15/19 09:15 Dose: 100 mg Documented by: [id number] Admin: 01/14/19 21:12 Dose: 100 mg Documented by: [id number] Admin: 01/14/19 09:09 Dose: 100 mg Documented by: [id number] Admin: 01/13/19 20:27 Dose: 100 mg Documented by: [id number] Admin: 01/13/19 07:59 Dose: Not Given Documented by: [id number] Admin: 01/12/19 20:16 Dose: 100 mg Documented by: [id number] Admin: 01/12/19 08:22 Dose: 100 mg Documented by: [id number] Admin: 01/12/19 00:16 Dose: 100 mg Documented by: [id number] Insulin Aspart (Novolog Flexpen) 0 units SC ACHS CHALINO Stop: 02/11/19 16:29 Last Admin: 01/16/19 08:55 Dose: Not Given Documented by: [id number] Admin: 01/15/19 22:30 Dose: Not Given Documented by: [id number] Cosigned by: [id number] Admin: 01/15/19 18:44 Dose: Not Given Documented by: [id number] Cosigned by: [id number] Admin: 01/15/19 13:08 Dose: Not Given Documented by: [id number] Admin: 01/15/19 09:20 Dose: Not Given Documented by: [id number] Admin: 01/14/19 21:02 Dose: Not Given Documented by: [id number] Cosigned by: [id number] Admin: 01/14/19 18:39 Dose: Not Given Documented by: [id number] Cosigned by: [id number] Admin: 01/14/19 13:38 Dose: Not Given Documented by: [id number] Cosigned by: [id number] Admin: 01/14/19 09:29 Dose: Not Given Documented by: [id number] Cosigned by: [id number] Admin: 01/13/19 20:31 Dose: Not Given Documented by: [id number] Admin: 01/13/19 18:20 Dose: Not Given Documented by: [id number] Cosigned by: [id number] Admin: 01/13/19 13:08 Dose: Not Given Documented by: [id number] Cosigned by: [id number] Admin: 01/13/19 08:54 Dose: Not Given Documented by: [id number] Cosigned by: [id number] Admin: 01/12/19 20:55 Dose: Not Given Documented by: [id number] Admin: 01/12/19 18:30 Dose: Not Given Documented by: [id number] Cosigned by: [id number] Magnesium Oxide (Mag-Ox) 400 mg PO QPM CHALINO Stop: 02/10/19 23:44 Last Admin: 01/15/19 20:36 Dose: 400 mg Documented by: [id number] Admin: 01/14/19 21:13 Dose: 400 mg Documented by: [id number] Admin: 01/13/19 20:27 Dose: 400 mg Documented by: [id number] Admin: 01/12/19 20:16 Dose: 400 mg Documented by: [id number] Admin: 01/12/19 00:15 Dose: 400 mg Documented by: [id number] Olanzapine (Zyprexa) 10 mg PO HS CHALINO Stop: 02/10/19 20:59 Last Admin: 01/15/19 20:36 Dose: 10 mg Documented by: [id number] Admin: 01/14/19 21:13 Dose: 10 mg Documented by: [id number] Admin: 01/13/19 20:27 Dose: 10 mg Documented by: [id number] Admin: 01/12/19 20:16 Dose: 10 mg Documented by: [id number] Admin: 01/11/19 23:08 Dose: 10 mg Documented by: [id number] Ranitidine HCl (Zantac) 150 mg PO BID CHALINO Stop: 02/12/19 13:34 Last Admin: 01/16/19 09:12 Dose: 150 mg Documented by: [id number] Admin: 01/15/19 20:36 Dose: 150 mg Documented by: [id number] Admin: 01/15/19 09:15 Dose: 150 mg Documented by: [id number] Admin: 01/14/19 21:13 Dose: 150 mg Documented by: [id number] Admin: 01/14/19 09:09 Dose: 150 mg Documented by: [id number] Admin: 01/13/19 20:27 Dose: 150 mg Documented by: [id number] Admin: 01/13/19 15:00 Dose: 150 mg Documented by: [id number] Trimethoprim/Sulfamethoxazole (Septra 400/80mg Tab) 1 tab PO Q12 CHALINO Stop: 01/23/19 14:29 Last Admin: 01/16/19 09:12 Dose: 1 tab Documented by: [id number] Admin: 01/15/19 20:36 Dose: 1 tab Documented by: [id number] Admin: 01/15/19 09:15 Dose: 1 tab Documented by: [id number] Admin: 01/14/19 21:12 Dose: 1 tab Documented by: [id number] Admin: 01/14/19 09:09 Dose: 1 tab Documented by: [id number] Admin: 01/13/19 20:27 Dose: 1 tab Documented by: [id number] Admin: 01/13/19 15:00 Dose: 1 tab Documented by: [id number] (1) UTI (urinary tract infection) Hematuria presence: without hematuria Urinary tract infection type: acute cystitis Qualified Code(s): N30.00 - Acute cystitis without hematuria
--- NOTE | 2019-01-16 11:53 | Psychiatric Consultation ---
Date of Consultation January 16, 2019 Impression / Recommendations (1) Schizophrenia: 01/16 -her custodial staff and patient report, he has been stable on olanzapine without active psychotic symptoms. Continue current medication. No psychiatric contraindication to acute inpatient rehab. Present on Admission?: Yes Risk Factors Assessment Do You Have Access To A Gun?: No Psych History Identifying Data 63-year-old black male inmate at [facility] who was admitted 01/11/2019 after he presented with spinal cord compression requiring emergent surgery. He has been referred to [facility], and psychiatry was consulted at the request due to his history of schizophrenia. 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 History of Present Illness Per chart review, the patient presented with 2 weeks of right hand and leg numbness and weakness, incontinence, muscle atrophy and myelopathy, and required emergent surgery the day of admission for cervical spine cord decompression. He was found to have a UTI as well. Postoperatively, he had episodes of nonsustained ventricular tachycardia, and was monitored in the ICU. He has been referred to [facility] for acute inpatient rehab, who requested neurological and psychiatric consults. Patient has a history of schizophrenia, and has been continued on his regular dose of olanzapine 10 mg at bedtime since admission. He has been calm and cooperative with care here, consistently alert and oriented x4 per nursing notes, it has been taking medications as prescribed. Nursing staff at the present report the patient has been incarcerated since 1975, has a diagnosis of schizophrenia, and has been stable for years. He is typically polite, cooperative, and compliant with medication. He has no history of aggressive or dangerous behavior in custodial, and has not endorsed suicidal or homicidal thoughts. On my assessment, he reports that he has a history of schizophrenia, for which he used to take Thorazine, "but that was stopped years ago." He is not sure what medication he takes now, but denies current or recent psychotic symptoms, including hallucinations and paranoia. He denies mood symptoms and thoughts of harming himself or others. He is unable to provide information about symptoms he had in the past that led to his diagnosis of schizophrenia. He says that he received the sentence in 1974, which was later changed to a life sentence. He says he is willing to follow whatever recommendations his doctors make. Past Psychiatric History Previous Psych History: Schizophrenia. Per custodial mental health unit staff, he has been stable for years. Current Psychiatric Diagnosis: Schizophrenia Outpatient Services: n/a -incarcerated Do You Have Access To A Gun?: No Past Medication Trials: Include but not limited to chlorpromazine. Patient cannot recall others. Allergies Allergy/AdvReac Type Severity Reaction Status Date / Time No Known Allergies Allergy Unverified 01/11/19 12:07 Home Medications Home Medications Medication Instructions Recorded Confirmed Type acetaminophen [Tylenol] 650 mg PO UD 01/11/19 01/11/19 History olanzapine [Zyprexa] 10 mg PO HS 01/11/19 01/11/19 History Personal History Living Arrangements Comments: Incarcerated a 6, currently at [facility] Born In: [place] Beliefs That Will Affect Care: None Patient History Medical History Cervical spinal cord compression Cervical spine compression C3-4 cervical spine profound neuro deficits Hypertension Schizophrenia Surgical History History of eye surgery Family History Father , history is not known No problems noted. Mother , unknown health history No problems noted. 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 Dressed in a hospital gown, bearded, bandage on the anterior neck, lying in bed in no acute distress. Limited eye contact. No abnormal movements. Calm and cooperative. Speech is normal rate, volume, and tone. Affect is euthymic and stable. No SI, HI, hallucinations, or paranoia. Vital Signs (Past 24 Hours) Last Vital Signs Temp 37.1 C 01/16/19 07:34 Pulse 74 03/20/19 11:31 Resp 20 01/16/19 11:31 BP 139/70 01/16/19 07:34 Pulse Ox 98 01/16/19 11:31 Review of Systems Denies anxiety, pain, dizziness Results & Data Medications Administered Docusate Sodium (Colace) 100 mg PO BID CHALINO Stop: 02/10/19 23:44 Last Admin: 01/16/19 09:12 Dose: 100 mg Documented by: [id number] Admin: 01/15/19 20:36 Dose: 100 mg Documented by: [id number] Admin: 01/15/19 09:15 Dose: 100 mg Documented by: [id number] Admin: 01/14/19 21:12 Dose: 100 mg Documented by: [id number] Admin: 01/14/19 09:09 Dose: 100 mg Documented by: [id number] Admin: 01/13/19 20:27 Dose: 100 mg Documented by: [id number] Admin: 01/13/19 07:59 Dose: Not Given Documented by: [id number] Admin: 01/12/19 20:16 Dose: 100 mg Documented by: [id number] Admin: 01/12/19 08:22 Dose: 100 mg Documented by: [id number] Admin: 01/12/19 00:16 Dose: 100 mg Documented by: [id number] Insulin Aspart (Novolog Flexpen) 0 units SC ACHS CHALINO Stop: 02/11/19 16:29 Last Admin: 01/16/19 08:55 Dose: Not Given Documented by: [id number] Admin: 01/15/19 22:30 Dose: Not Given Documented by: [id number] Cosigned by: [id number] Admin: 01/15/19 18:44 Dose: Not Given Documented by: [id number] Cosigned by: [id number] Admin: 01/15/19 13:08 Dose: Not Given Documented by: [id number] Admin: 01/15/19 09:20 Dose: Not Given Documented by: [id number] Admin: 01/14/19 21:02 Dose: Not Given Documented by: [id number] Cosigned by: [id number] Admin: 01/14/19 18:39 Dose: Not Given Documented by: [id number] Cosigned by: [id number] Admin: 01/14/19 13:38 Dose: Not Given Documented by: [id number] Cosigned by: [id number] Admin: 01/14/19 09:29 Dose: Not Given Documented by: [id number] Cosigned by: [id number] Admin: 01/13/19 20:31 Dose: Not Given Documented by: [id number] Admin: 01/13/19 18:20 Dose: Not Given Documented by: [id number] Cosigned by: [id number] Admin: 01/13/19 13:08 Dose: Not Given Documented by: [id number] Cosigned by: [id number] Admin: 01/13/19 08:54 Dose: Not Given Documented by: [id number] Cosigned by: [id number] Admin: 01/12/19 20:55 Dose: Not Given Documented by: [id number] Admin: 01/12/19 18:30 Dose: Not Given Documented by: [id number] Cosigned by: [id number] Magnesium Oxide (Mag-Ox) 400 mg PO QPM CHALINO Stop: 02/10/19 23:44 Last Admin: 01/15/19 20:36 Dose: 400 mg Documented by: [id number] Admin: 01/14/19 21:13 Dose: 400 mg Documented by: [id number] Admin: 01/13/19 20:27 Dose: 400 mg Documented by: [id number] Admin: 01/12/19 20:16 Dose: 400 mg Documented by: [id number] Admin: 01/12/19 00:15 Dose: 400 mg Documented by: [id number] Olanzapine (Zyprexa) 10 mg PO HS CHALINO Stop: 02/10/19 20:59 Last Admin: 01/15/19 20:36 Dose: 10 mg Documented by: [id number] Admin: 01/14/19 21:13 Dose: 10 mg Documented by: [id number] Admin: 01/13/19 20:27 Dose: 10 mg Documented by: [id number] Admin: 01/12/19 20:16 Dose: 10 mg Documented by: [id number] Admin: 01/11/19 23:08 Dose: 10 mg Documented by: [id number] Ranitidine HCl (Zantac) 150 mg PO BID CHALINO Stop: 02/12/19 13:34 Last Admin: 01/16/19 09:12 Dose: 150 mg Documented by: [id number] Admin: 01/15/19 20:36 Dose: 150 mg Documented by: [id number] Admin: 01/15/19 09:15 Dose: 150 mg Documented by: [id number] Admin: 01/14/19 21:13 Dose: 150 mg Documented by: [id number] Admin: 01/14/19 09:09 Dose: 150 mg Documented by: [id number] Admin: 01/13/19 20:27 Dose: 150 mg Documented by: [id number] Admin: 01/13/19 15:00 Dose: 150 mg Documented by: [id number] Trimethoprim/Sulfamethoxazole (Septra 400/80mg Tab) 1 tab PO Q12 CHALINO Stop: 01/23/19 14:29 Last Admin: 01/16/19 09:12 Dose: 1 tab Documented by: [id number] Admin: 01/15/19 20:36 Dose: 1 tab Documented by: [id number] Admin: 01/15/19 09:15 Dose: 1 tab Documented by: [id number] Admin: 01/14/19 21:12 Dose: 1 tab Documented by: [id number] Admin: 01/14/19 09:09 Dose: 1 tab Documented by: [id number] Admin: 01/13/19 20:27 Dose: 1 tab Documented by: [id number] Admin: 01/13/19 15:00 Dose: 1 tab Documented by: [id number]
[2019-01-16] MEDS: MAGNESIUM OXIDE 400 MG TAB PO SCH (20:06)
[2019-01-16] MEDS: OLANZapine 10 MG TAB PO SCH (20:07)
[2019-01-17 06:11] LABS: Hematocrit (blood only) 29.5 % (42-52); Hemoglobin 10.1 g/dL (14.0-18.0); Mean Corpuscular Hgb Conc 34.2 g/dL (32-36); Mean Corpuscular Volume 95.2 fL (80-100); Mean Platelet Volume 9.9 fL (7.4-10.4); Platelet Count 239 K/uL (130-400); RDW Coefficient of Variation 13.5 % (11.5-14.5); RDW Standard Deviation 46.4 fL (36.4-46.3); White Blood Count 6.79 K/uL (4.8-10.8)
[2019-01-17 06:51] LABS: BUN Creatinine Ratio 22.7 (10-20); Calcium 8.1 mg/dl (8.5-10.1); Creatinine Clr Calc Pharmacy 66.4 ml/min; Est GFR (African American) 86.1; Est GFR (Non-African American) 74.3; Potassium 3.6 mmol/L (3.5-5.1)
[2019-01-17 08:00] VITALS: BP 142/87; TEMP 97.3
[2019-01-17] MEDS: INSULIN ASPART 100 UNITS/ML 3 ML PEN SC SCH (08:21)
[2019-01-17] MEDS: DOCUSATE SODIUM 100 MG CAP PO SCH (08:22)
[2019-01-17] MEDS: SULFA/TRIMETH 400/80MG TAB PO SCH (08:22)
--- NOTE | 2019-01-17 10:42 | Discharge Summary ---
Date of Service January 17, 2019 Admission HPI Per Admitting Provider Per chart review, the patient presented with 2 weeks of right hand and leg numbness and weakness, incontinence, muscle atrophy and myelopathy, and required emergent surgery the day of admission for cervical spine cord decompression. He was found to have a UTI as well. Postoperatively, he had episodes of nonsustained ventricular tachycardia, and was monitored in the ICU. He has been referred to [facility] for acute inpatient rehab, who requested neurological and psychiatric consults. Patient has a history of schizophrenia, and has been continued on his regular dose of olanzapine 10 mg at bedtime since admission. He has been calm and cooperative with care here, consistently alert and oriented x4 per nursing notes, it has been taking medications as prescribed. Nursing staff at the present report the patient has been incarcerated since 1975, has a diagnosis of schizophrenia, and has been stable for years. He is typically polite, cooperative, and compliant with medication. He has no history of aggressive or dangerous behavior in half-way, and has not endorsed suicidal or homicidal thoughts. On my assessment, he reports that he has a history of schizophrenia, for which he used to take Thorazine, "but that was stopped years ago." He is not sure what medication he takes now, but denies current or recent psychotic symptoms, including hallucinations and paranoia. He denies mood symptoms and thoughts of harming himself or others. He is unable to provide information about symptoms he had in the past that led to his diagnosis of schizophrenia. He says that he received the sentence in 1974, which was later changed to a life sentence. He says he is willing to follow whatever recommendations his doctors make. Admission Exam Per Admitting Provider Constitutional: + ill appearing and + thin; no acute distress Eyes: PERRL ENMT: external ear and nose normal, oropharynx normal Neck: trachea midline, no thyromegaly Respiratory: normal respiratory effort, lungs clear to auscultation Cardiovascular: Rate/Rhythm: regular rate and regular rhythm Heart Sounds: normal S1 and normal S2; no murmur Vessels: posterior tibial pulses present and dorsalis pedis pulses present; no JVD Extremities: no edema Gastrointestinal (Abdomen): normal bowel sounds, soft, nontender, no hepatosplenomegaly Inspection/Auscultation: + abdomen distended (mild) Musculoskeletal: Extremities: + muscle atrophy (intrinsic hand muscles b/l, worse on right; leg muscles as well) Bilateral knees with significant ost eoarthritic bony changes as well as probable joint effusions. Left knee had signs of recent trauma to the medial aspect. She reported he had been crawling on his knees recently because of the weakness in his legs. Skin: no rashes, warm and dry Neurologic: Reflexes in the upper and lower extremities are brisk. May be a couple beats of ankle clonus bilaterally. Strength: Right hand patient support associate at best 3 out of 5. Left hand patient support associate at best 3 out of 5. Right lower extremity with at most 1 out of 5 strength. Left lower extremity strength at best 2 out of 5. Right and left arm flexion about 3 out of 5 as he can raise his arms against gravity. Interestingly he stated that light sensation was the same in both the right and left legs as well as the right and left arms. I did not test his gait. Psychiatric: Orientation: alert Affect: + flat affect He was not responding to internal stimuli and there is no evidence of auditory or visual hallucinations Genitourinary: Scott catheter was in place Lymphatic: no cervical lymphadenopathy Principal Diagnosis Cervical cord compression with myelopathy Discharge Exam Constitutional WD/WN, vitals as above cooperative and comfortable Eyes + anicteric sclerae and EOM intact bilaterally Respiratory normal respiratory effort, lungs clear to auscultation Cardiovascular Rate/Rhythm: regular rate and regular rhythm Extremities: no pedal edema Gastrointestinal (Abdomen) Inspection/Auscultation: normal bowel sounds Percussion/Palpation: abdomen soft; abdomen nontender, no guarding and abdomen not rigid Musculoskeletal Head/Neck/Chest: normocephalic and head atraumatic right extremity weakness with decreased right hand patient support associate compared to left but seems unchanged from yesterday and rest of exam is unchanged from yesterday, decreased right upper extremity strength to flexion and extremity of upper arm. He has right lower extremity weakness 2/5 to right straight leg raise, decreased foot right lower extremity plantar and dorsiflexion. Decreased sensation to right lower and upper extremity as compared to left to gross touch. Skin no rashes, warm and dry Neurologic moves all extremities and awake Psychiatric A+Ox3, euthymic affect Discharge Data Allergies Allergy/AdvReac Type Severity Reaction Status Date / Time No Known Allergies Allergy Unverified 01/11/19 12:07 Consultations 01/11/19 15:57 Consult Orthopedic Surgery Stat 01/11/19 23:29 Consult Wheat Combine Driver Routine 01/12/19 10:08 Consult Case Management - Discharge Planning Routine 01/14/19 13:35 Consult Case Management - Discharge Planning Routine 01/15/19 15:10 Consult Neurology Routine Consult Psychiatry Routine Procedures Performed Operation Date: 01/11/19 14:20 Actual Procedures p C3-C4 Anterior Cervical Discectomy Fusion(Not Applicable) - Damon Díaz, DO Ordered Studies 01/11/19 FL cervical 2-3V Routine FL fluoroscopy <1hr Routine 01/11/19 10:15 MR thoracic spine wo con Stat 01/11/19 11:20 CT head/brain wo con Stat 01/11/19 15:19 MR cervical spine wo con Stat Hospital Course (1) Compression of spinal cord: Pt is a 63yo inmate with a complex history of cervical cord compression and myelopathy, extremity neurological deficits w/ weakness and new onset urinary and fecal incontinence who had emergency surgery with Dr. Díaz for anterior cervical diskectomy and fusion. Cervical Spine diskectomy and fusion for cord compression and myelopathy 01/11/[address] Díaz -pt currently improving, post-op Day #6 on day of discharge -Collar has been removed, steroids stopped. -he is tolerating a regular/carb consistent diet -recommendation was for acute inpatient rehab, case management discussed with correctional facility who approved patient to be discharged to a non- correctional rehab facility, a referral was made to [facility] for acute inpatient rehab, who accepted patient. Accepting physician requested a neuro and psychiatry consult which were provided as requested. F/E/N: Not receiving IV fluids currently, Full liquid diet. Consider advancing as tolerated. DVT Prophylaxis -SCDs because of concern for cord swelling with anticoagulants. (2) Urinary retention: Urinary retention-RESOLVED -scott removed. Voiding appropriate. (3) UTI (urinary tract infection): -coag neg staph grew in urine culture. Complicated UTI -Previously treated with Ceftriaxone and Vanc. Switched to IV Nafcillin. Currently on PO Bactrim. -Will continue for 10 more days as outpatient for a total of 14 days total. Continue Bactrium PO BID for 10 days. (4) GERD (gastroesophageal reflux disease): -continue ranitidine PO (5) Thought disorder: ? Psychotic dz - Schizophrenia -continue Zyprexa Total Time Total Time Spent Total Time Spent (In Minutes): <30 Total Time Includes: Examination of the Patient, Discharge Planning, Medication Reconciliation and Communication With Other Providers Discharge Plan Discharge Items Patient Disposition: Transfer Inpatient Rehab Fac Reason For Visit: CERVICAL SPINE CORD COMPRESSION Discharge Diagnosis: Cervical cord compression with myelopathy Discharge Goals: Improve function, Increase independence and Therapeutic intervention Activity: Per 'Additional Instructions' section Lifting: No more than 5 pounds Bathing: Keep incision dry Non-emergency contact: Primary Care Provider Call non-emergency contact if: you have any medication questions and your symptoms worsen Follow-up/Referrals: Jordan FORREST [Primary Care Provider] - Damon Díaz, [Surgeon] - Diet: Regular Addtl Provider Instructions: You were admitted and treated for Cervical cord compression with myelopath with surgical intervention. You are being discharged to an inpatient rehab facility for further rehabilitation. You also had a Urinary Tract Infection here and will require 10 more days of antibiotic. Antibiotic is called Bactrim. You were treated with this antibiotic in the hospital for 4 days, will continue for 10 more days for a total of 14 days of treatment. It is okay to resume all previous medications. PLEASE CALL THE OFFICE AT [phone] INTO SEE DR. DÍAZ IN 2 WEEKS; MANDATORY Prescriptions: New sulfamethoxazole-trimethoprim 400-80 mg Tablet 1 tab PO Q12 10 Days Qty: 20 RF: 0 Continued acetaminophen [Tylenol] 325 mg Tablet 650 mg PO UD RF: 0 olanzapine [Zyprexa] 10 mg Tablet 10 mg PO HS RF: 0 Stand-Alone Forms: My [facility] Discharge Orders: Discharge Order (Routine); Ordered 01/17/19 Ordered By: Leobardo Anton Skilled Items Patient informed of condition?: Yes DNR: Yes Discharge Level of Care: Acute rehab Communicable Disease: No Discharge Prognosis: Stable Admission Data Admit Date/Time: 01/11/19 15:46 Attending Provider: Gómez Cardenas Admit Provider: Corby Rosas Primary Care Provider: Jordan FORREST Other Providers: Corby Rosas ; Damon Díaz ; Niko Miller ; Guerita Alarcon ; Niko Stewart ; Johann Foreman III ; Audra Irvin ; Katina Metzger ; José Miguel Wharton ; Christiano Knowles ; Erinn Griffiths ; Trina Alfred ; Cyrus Torrez ; Te Hsu ; Anu Proctor ; José Miguel Koo ; Pinky Acosta ; Selina Young ; Niko Swartz ; Deb Marte ; Lv Duncan I ; Bonita Stone ; Aurelia Paula. ; Sa miki Mccrary ; Adelfo Faye. Service: Intensive Care Unit Other Pending Studies at Discharge: No DC Date/Time DO NOT enter until pt leaves facility: 01/17/19 13:30 Supervising Physician Co-Signing Physician Notes no new problems Vitals noted, in general he is in no distress. Cervical cord compressionappearing to be doing okay postop, will be going to rehab, stable for discharge. outpt ortho follow up DVT prophylaxis SCDs.
[2019-01-17 11:32] VITALS: PULSE 72; O2SAT 98
--- NOTE | 2019-01-18 06:36 | Discharge Summary ---
SUBJECTIVE: He is alert, oriented this morning. No chest pain, shortness of breath, feeding himself. I do not see him ambulate. Vital signs stable. Wound clean. ASSESSMENT: Status post spinal cord compression and quadriplegia with urgent surgery on 01/11/2019 for stabilization of the spinal canal and decompression of the spinal canal. He has made a miraculous steady progress. Happy with progress thus far. He will be discharged home hopefully today or tomorrow. He does have a walker for support. He will need rehab on a daily basis. Please call the office at [phone], get in to see Dr. Damon Díaz within 2 weeks post-discharge. He may shower, he may get to water on the wound. It should be no issues. Call if there are any problems.
== END 2019-01-17 13:30 | DRG 471 ==
LOC: ED 09:53 → 3E 15:46 → SUATTDRO 15:46 → 3E 16:58 → 1E 20:30 → 3E 01-12 11:51